=== PATIENT | female | born 1990 | race Caucasian/White ===

== ENCOUNTER 2023-12-18 17:35 | Emergency (ER) | payer OTHER, SELFPAY ==
[2023-12-18] VITALS (7 sets, daily range): BP systolic 108–127; BP diastolic 57–94; BMI 30.7
[2023-12-18 17:58] LABS: % Basophils 0.4 % (0-2); % Eosinophils 0.9 % (0-6); % Immature Granulocytes 0.5 % (0-0.5); % Monocytes 5.8 % (1.7-9.3); % Neutrophils 81.4 % (42.2-75.2); Absolute Basophils 0.1 10^3/uL (0-0.2); Absolute Eosinophils 0.1 10^3/uL (0-0.7); Absolute Immature Granulocytes 0.1 10^3/uL (0-0.05); Absolute Lymphocytes 1.3 10^3/uL (1.2-3.4); Absolute Monocytes 0.7 10^3/uL (0.1-0.6); Absolute Neutrophils 9.2 10^3/uL (1.4-6.5); Hematocrit 39.3 % (37.0-47.0); Hemoglobin 13.6 g/dL (12.0-16.0); Mean Corp Hgb Conc. 34.6 g/dL (33.0-37.0); Mean Corpuscular Hgb 31.1 pg (27.0-31.0); Mean Corpuscular Volume 89.7 fL (81.0-99.0); Nucleated Red Blood Cells % 0 %; Platelet Count 264 10^3/uL (130-400); Red Blood Cell Count 4.38 10^6/uL (4.20-5.40); Red Cell Dist. Width 15.2 % (11.5-14.5); White Blood Cell Count 11.4 10^3/uL (4.8-10.8)
[2023-12-18 19:36] LABS: Blood Urea Nitrogen 10 mg/dl (7-17); Calcium 9.7 mg/dl (8.4-10.2); Carbon Dioxide 19 mmol/L (22-30); Chloride 101 mmol/L (98-107); Estimated Creatinine Clearance > 125 ml/min; Glucose 98 mg/dl (70-99); Sodium 136 mmol/L (135-145); eGFR > 60.00
[2023-12-18 20:38] LABS: Urine Albumin Trace (Neg - Trace); Urine Bilirubin 1+ (Negative); Urine Character Very Cloudy (Clear); Urine Color Yellow; Urine Glucose Negative (Negative); Urine Ketone Trace (Negative); Urine Leukocyte Trace (Negative); Urine Nitrite Negative (Negative); Urine Occult Blood 1+ (Negative); Urine Urobilinogen Negative (Neg - 1+)
[2023-12-18 20:43] LABS: HCG, Urine Qualitative Screen Negative
[2023-12-18 20:50] LABS: Urine Red Blood Cell 0-2 /HPF (0-2); Urine Squamous Cell >30 /LPF (Few); Urine White Cell 0-2 /HPF (0-5)
[2023-12-18] MEDS: MOTRIN 600 MG PO (21:25)
[2023-12-18] MEDS: NSS 1000 IV (21:27)
--- NOTE | 2023-12-18 21:53 | ED.GENMED ---
History of Present Illness
General
Chief Complaint: Weakness
Source: patient
Time Seen by Provider: 12/18/23 20:40
History of Present Illness
History of Present Illness:
33-year-old female with past medical history of anxiety, depression, PTSD (seizure noted in past medical history however patient states that she had full neurologic workup she was told did not have any signs of epilepsy or seizure disorder)
presenting to the emergency stating she has been extremely anxious over the last 48 hours, has had waxing and waning nausea, had a questionable seizure this past Monday after a night of drinking but states she remembers the event and was fully
conscious during it and believes that this was just her anxiety. She had been drinking approximately 8 alcoholic beverages over the last 3 days due to her anxiety. Recently moved out of her grandmother's house into an apartment with her boyfriend
but states her boyfriend left for his job as a hole digger truck driver earlier today and patient believes all of her symptoms are just related to her anxiety over this. She noticed a frontal headache as well today so decided to come to the ER to be further
evaluated. She states that she has had some issues with alcohol in the past and has an appointment with her psychologist and psychiatrist tomorrow. She denies any SI/HI or auditory/visual hallucinations. No other concerns at this time.
Past History
Past History
ED Past Medical History: Psychiatric
ED Past Surgical History:
Social History
Tobacco: Smoker
Alcohol: Binge drinker
Drug: None
Personal: Partner
Living: with family
Employment: Employed
Review of Systems
Review of Systems
All Other Systems: ROS reviewed and negative except as documented in HPI and ROS
Phy Exam
Physical Exam
Physical Exam:
GENERAL: Alert , in no apparent distress, anxious and tearful
EYE: conjunctiva clear
NECK: Supple
ENT: o/p clr, mmm.
CARDIAC: Regular rate and rhythm
LUNGS: Clear breath sounds bilaterally, no acute respiratory distress, no wheezes/rales/rhonchi
NEUROLOGICAL: Alert and oriented
SKIN: Warm and dry, skin intact.
MUSCULOSKELETAL: well perfused.
PSYCH: Normal and appropriate interaction.
Scores
Heart Failure Risk
Heart Failure Risk Score: Not Applicable
Heart Score for Chest Pain Patients
STEMI patient?: Not applicable
Withdrawal Assessment of Alcohol
Withdrawal Assessment Completed?: Not applicable
Course
Orders/Labs/Results
Orders:
Orders
12/18/23 17:47
Basic Metabolic Panel Urgent
Complete Blood Count/With Diff Urgent
12/18/23 19:46
Test Result ONCE
12/18/23 20:26
HCG, Urine Qualitative Screen Urgent
Date Specimen was Collected: 12/18/23
Time Specimen was Collected: 19:46
UA Reflex to Culture [Urinalysis Reflex To Culture] Urgent
Date Specimen was Collected: 12/18/23
Time Specimen was Collected: 19:46
Urine Microscopic Reflex Cult Urgent
12/18/23 20:52
0.9% Sodium Chloride 1000 ml [Nss] 1,000 ml IV BOLUS
Ibuprofen [Motrin] 600 mg PO NOW STA
Abnormal Lab Results
12/18/23 12/18/23
17:47 20:26
WBC 11.4 H 10^3/uL
(4.8-10.8)
MCH 31.1 H pg
(27.0-31.0)
RDW 15.2 H %
(11.5-14.5)
Abs Immat Gran (auto) 0.1 H 10^3/uL
(0-0.05)
Absolute Neuts (auto) 9.2 H 10^3/uL
(1.4-6.5)
Absolute Monos (auto) 0.7 H 10^3/uL
(0.1-0.6)
Neutrophils % 81.4 H %
(42.2-75.2)
Lymphocytes % 11.0 L %
(20.5-51.1)
Carbon Dioxide 19 L mmol/L
(22-30)
Creatinine 0.5 L mg/dL
(0.6-1.0)
Urine Ketones Trace A
(Negative)
Ur Occult Blood Reflex 1+ A
(Negative)
Urine Bilirubin 1+ A
(Negative)
Leukocyte Esterase Rfl Trace A
(Negative)
12/18/23 17:47
12/18/23 18:11
Vital Signs
Initial and Last Documented VS:
Initial Vital Signs
Temp Pulse Resp BP
98.4 F 107 14 118/86
12/18/23 17:39 12/18/23 17:39 12/18/23 17:39 12/18/23 17:39
Last Documented Vital Signs
Temp Pulse Resp BP Pulse Ox
98.4 F 75 15 127/85 100
12/18/23 17:39 12/18/23 22:15 12/18/23 22:15 12/18/23 22:00 12/18/23 22:15
MDM/Problems Addressed
Differential Diagnosis Includes:
Anxiety, alcohol withdrawal seizure, pseudoseizure, electrolyte disturbance
MDM/Problems Addressed:
33-year-old female presenting emergency department for evaluation of a multitude of symptoms centered around patient's anxiety. Currently stating symptom bothering her most is a mild headache and feels dehydrated. She denies any fevers or
infectious symptoms. As far as patient's seizure goes she notes that she had been drinking that night so it is unlikely to be an alcohol withdrawal seizure given that the seizure in question occurred while drinking. Patient also notes that she was
conscious during this event as well as has been worked up for seizure in the past with no abnormal findings. I did offer [facility] consultation however patient declines and states she will follow-up with her own psychologist tomorrow. Will treat
headache with fluids and Motrin. Patient to be dispositioned home afterwards
Chronic conditions affecting care: Psychiatric illness
Acute Exacerbation and/or Progression of Chronic Illness: Psychiatric illness
*Pulse Oximetry
Patient hypoxic: no
*Critical Care Note
Total Time (30-74mins, 75-104mins- exclusive of procedures): Not Applicable
Patient Management
Escalation/DeEscalation of care consider admission/obs:
Patient feeling improved. Stable for discharge home. Aware of return precautions.
ED Attending Note
-
Portions of this chart may have been created with voice recognition software.� Occasional wrong word or��sound alike� substitutions may have occurred due to the inherent limitations of voice recognition software.
Discharge Plan
Departure
Patient Disposition: Home (Routine Discharge)
Date of Disposition: 12/18/23
Time of Disposition: 21:53
Patient with high blood pressure during this ER visit?: No
Discharge Problem:
Headache
Instructions: Anxiety, Adult ED
Referrals:
NONE,* [Family Provider] -
Interventions
Interventions:
*Risk Screen - Suicide Last Done: 12/18/23 17:39
*General Assessment Last Done: 12/18/23 17:39
*Neglect/Abuse Screening Last Done: 12/18/23 17:39
ED- Fall Risk Assessment Last Done: 12/18/23 22:31
*ED COVID-19 Vaccine History Last Done: 12/18/23 22:31
*Nursing Disposition Last Done: 12/18/23 22:31
ED- Cardiac Assessment Last Done: 12/18/23 17:46
ED- Neurological Assessment Last Done: 12/18/23 17:46
ED- Pulmonary Assessment Last Done: 12/18/23 17:46
Discharge Date and Time
Discharge Date/Time: 12/18/23 22:32
Print Language: TAMAZIGHT
== END 2023-12-18 22:32 | disposition home or self-care (01) ==
LOC: EMR 17:35
PROVIDERS: EMERGENCY PHYSICIAN Emergency Medicine
DX: R51.9 Headache, unspecified (principal); F41.9 Anxiety disorder, unspecified; F32.A Depression, unspecified; F17.200 Nicotine dependence, unspecified, uncomplicated
CPT/HCPCS: 99284; 96360; 80048; 81003; 81015; 81025; 85025

== ENCOUNTER 2023-12-24 08:25 | Emergency (ER) | payer OTHER, SELFPAY ==
[2023-12-24 08:30] VITALS: BP 135/98
--- NOTE | 2023-12-24 08:58 | ED.GENMED ---
History of Present Illness
General
Chief Complaint: Alcohol Problem
Source: patient
Exam Limitations: none
Time Seen by Provider: 12/24/23 08:36
Nursing documentation reviewed up to this point in time: agreed with
History of Present Illness
History of Present Illness:
33-year-old female presents to the ER for evaluation. Patient reports she feels that she is in alcohol withdrawal. She last drank 2 PM yesterday. She complains of shakes nausea and feels like she can pass out. She normally drinks every day and
recently has been drinking a bottle of vodka a day. She does report she has a history of seizure in the past and has had hallucinations in the past from alcohol withdrawal. She has never been inpatient for alcohol detox. She is prescribed
medications for anxiety depression has not been taking them. She denies any other drugs.
Since she stopped drinking yesterday at 2 PM she has not had any hallucinations.
Past History
Past History
ED Past Medical History: Psychiatric
ED Past Surgical History:
Social History
Tobacco: Smoker
Alcohol: Binge drinker
Drug: None
Personal: Partner
Living: with family
Employment: Employed
Review of Systems
Review of Systems
Allergies reviewed?: Yes
All Other Systems: ROS reviewed and negative except as documented in HPI and ROS
Constitutional: Reports no symptoms; Denies fever, fatigue or chills
EENT: Reports no symptoms
Respiratory: Reports no symptoms
Cardiac: Reports no symptoms
ABD/GI: Reports nausea; Denies vomiting
: Reports no symptoms
Musculoskeletal: Reports no symptoms
Skin: Reports no symptoms
Neurological: Reports other (shaky )
Psychiatric: Reports no symptoms
Phy Exam
General Physical Exam
General Presentation: no apparent distress
General age: appears stated age
General Skin: warm and dry
General Habitus: normal
General Mental: anxious
General Hydration: dry mucous membranes
Eye Exam
Eye Exam: PERRL and EOMI
Eye Exam General: PERRL: bilateral and EOM intact: bilateral
Pupil Exam: Bilateral: round and reactive
Cardiovascular Exam
Cardiovascular Exam: regular rate/rhythm, no murmur and normal peripheral pulses
Pulmonary Exam
Pulmonary Exam: lungs clear and no respiratory distress
Scores
Withdrawal Assessment of Alcohol
Withdrawal Assessment Completed?: Yes
Nausea and Vomiting: Mild nausea with no vomiting
Tactile Disturbances: None
Tremor: Moderate, with patient's arms extended
Auditory Disturbances: Not present
Paroxysmal Sweats: No sweat visible
Visual Disturbances: Not present
Anxiety: No anxiety, at ease
Headache, Fullness in Head: Not present
Agitation: Normal activity
Orientation and clouding of sensorium: Oriented and can do serial additions
Total CIWA Score: 5
Alcohol Withdrawal Medication Recommendation: Equal to MSAS Score 0-4. Monitor & re-assess q2hrs, NO MEDICATION NEEDED
Course
Orders/Labs/Results
Orders:
Orders
12/24/23 08:48
IV Insert/Care/Rem.- Treatment PRN
0.9% Sodium Chloride 1000 ml [Nss] 1,000 ml IV BOLUS
Test Result ONCE
12/24/23 09:00
Lorazepam [Ativan] 1 mg IV NOW STA
12/24/23 09:01
Ondansetron Injectable [Zofran] 4 mg IV NOW STA
12/24/23 09:05
Alcohol Urgent
Complete Blood Count/With Diff Urgent
Comprehensive Metabolic Panel Urgent
HCG, Serum Qualitative Screen Urgent
Lipase Urgent
12/24/23 13:05
Urinalysis Reflex To Culture Urgent
Date Specimen was Collected: 12/24/23
Time Specimen was Collected: 13:03
Urine Microscopic Reflex Cult Urgent
Urine Culture Urgent
JASPER Source: U
Specimen Description:
Date Specimen was Collected: 12/24/23
Time Specimen was Collected: 13:03
Abnormal Lab Results
12/24/23 12/24/23
09:05 13:05
WBC 11.3 H 10^3/uL
(4.8-10.8)
MCH 31.7 H pg
(27.0-31.0)
RDW 16.3 H %
(11.5-14.5)
Abs Immat Gran (auto) 0.1 H 10^3/uL
(0-0.05)
Absolute Neuts (auto) 9.1 H 10^3/uL
(1.4-6.5)
Absolute Lymphs (auto) 0.8 L 10^3/uL
(1.2-3.4)
Absolute Monos (auto) 1.2 H 10^3/uL
(0.1-0.6)
Neutrophils % 80.6 H %
(42.2-75.2)
Lymphocytes % 7.3 L %
(20.5-51.1)
Monocytes % 10.7 H %
(1.7-9.3)
Urine Ketones 2+ A
(Negative)
Ur Occult Blood Reflex Trace A
(Negative)
Leukocyte Esterase Rfl 2+ A
(Negative)
Urine RBC 3-6 A /HPF
(0-2)
Urine WBC (Reflex) 26-30 A /HPF
(0-5)
Urine Bacteria (Reflex) Many A
(Negative)
12/24/23 09:05
12/24/23 09:05
Vital Signs
Initial and Last Documented VS:
Initial Vital Signs
Temp Pulse Resp BP Pulse Ox
98.1 F 96 18 135/98 96
12/24/23 08:30 12/24/23 08:30 12/24/23 08:30 12/24/23 08:30 12/24/23 08:30
Last Documented Vital Signs
Temp Pulse Resp BP Pulse Ox
98.1 F 91 20 111/81 97
12/24/23 08:30 12/24/23 13:35 12/24/23 13:00 12/24/23 13:00 12/24/23 11:05
MDM/Problems Addressed
Differential Diagnosis Includes:
Not limited to alcohol withdrawal, dehydration
MDM/Problems Addressed:
Patient is a 33-year-old female with history of alcohol abuse complaining of alcohol withdrawal symptoms. She last drank yesterday at 2 PM complains of shakes and tremors. She does report she is a history of seizures. She denies any
hallucinations. She does present awake alert and tremulous however in no acute distress none diaphoretic none sweaty oriented x 3 . Patient was given fluids and Ativan feeling much better, less tremulous. She is afebrile white count minimally
elevated no complaints of infectious symptoms likely stress response. Normal LFTs normal renal function and negative hCG. Alcohol is not detected, UA with significant squamous cells no symptoms
she was evaluated by Dinorah thomson and declines inpatient but does want outpatient and is scheduled for outpatient center in [facility].
Case d/c with dr Lopez patient feels well enough to go home will DC on Librium fixed regimen. Boyfriend to come pick patient up. She is to return if any worsening of symptoms.
Chronic conditions affecting care:
alcohol abuse
*Pulse Oximetry
Patient hypoxic: no
*Critical Care Note
Total Time (30-74mins, 75-104mins- exclusive of procedures): Not Applicable
ED Attending Note
-
Portions of this chart may have been created with voice recognition software.� Occasional wrong word or��sound alike� substitutions may have occurred due to the inherent limitations of voice recognition software.
Discharge Plan
Departure
Patient Disposition: Home (Routine Discharge)
Date of Disposition: 12/24/23
Time of Disposition: 13:28
Patient with high blood pressure during this ER visit?: Yes
Condition: Fair
Covid-19: Not Applicable
Discharge Problem:
Alcohol dependence with withdrawal
Instructions: Alcohol Withdrawal (DC), BLOOD PRESSURE
Prescriptions:
New
chlordiazepoxide HCl 25 mg capsule
See Rx Instructions .ROUTE .COMPLEX Qty: 15 0RF
Rx Instructions:
Day1: 50 mg PO every 4- 6 hr Day 2 : 50 mg every 8-12 hr Day 3 50 mg every 12 - 24 hr Day 4: 25 mg every 12 to 24 hr then discontinue
Referrals:
NONE,* [Family Provider] -
Activity Restrictions/Additional Instructions:
As discussed a prescription for Librium for alcohol withdrawal was sent to your pharmacy take only as directed. You have been scheduled for outpatient detox program in [facility] and were given instructions. Return to the ER if any
worsening of symptoms if nausea vomiting tremors hallucinations sweating when the seizure activity or any further concerns.
Interventions
Interventions:
*Risk Screen - Suicide Last Done: 12/24/23 09:07
*General Assessment Last Done: 12/24/23 09:07
*Neglect/Abuse Screening Last Done: 12/24/23 09:07
ED- Fall Risk Assessment Last Done: 12/24/23 13:50
*ED COVID-19 Vaccine History Last Done: 12/24/23 09:07
*Nursing Disposition Last Done: 12/24/23 13:50
ED- Neurological Assessment Last Done: 12/24/23 09:07
ED-Psychological Assessment Last Done: 12/24/23 09:07
Discharge Date and Time
Discharge Date/Time: 12/24/23 13:45
Print Language: CAMBODIAN
[2023-12-24] MEDS: ZOFRAN 4 MG IV (09:03)
[2023-12-24] MEDS: ATIVAN 1 MG IV (09:03)
[2023-12-24] MEDS: NSS 1000 IV (09:03)
[2023-12-24 09:07] VITALS: BMI 30.7
[2023-12-24 09:18] LABS: % Basophils 0.8 % (0-2); % Eosinophils 0.2 % (0-6); % Immature Granulocytes 0.4 % (0-0.5); % Lymphocytes 7.3 % (20.5-51.1); % Monocytes 10.7 % (1.7-9.3); % Neutrophils 80.6 % (42.2-75.2); Absolute Basophils 0.1 10^3/uL (0-0.2); Absolute Immature Granulocytes 0.1 10^3/uL (0-0.05); Absolute Lymphocytes 0.8 10^3/uL (1.2-3.4); Absolute Monocytes 1.2 10^3/uL (0.1-0.6); Absolute Neutrophils 9.1 10^3/uL (1.4-6.5); Hematocrit 41.5 % (37.0-47.0); Hemoglobin 14.3 g/dL (12.0-16.0); Mean Corp Hgb Conc. 34.5 g/dL (33.0-37.0); Mean Corpuscular Hgb 31.7 pg (27.0-31.0); Mean Platelet Volume 9.1 fL (7.4-10.4); Nucleated Red Blood Cells % 0 %; Platelet Count 301 10^3/uL (130-400); Red Blood Cell Count 4.51 10^6/uL (4.20-5.40); Red Cell Dist. Width 16.3 % (11.5-14.5); White Blood Cell Count 11.3 10^3/uL (4.8-10.8)
[2023-12-24 09:28] LABS: ALT (SGPT) 21 U/L (0-35); AST (SGOT) 27 U/L (14-36); Albumin 4.9 g/dl (3.5-5.0); Alkaline Phosphatase 95 U/L (38-126); Blood Urea Nitrogen 12 mg/dl (7-17); Calcium 9.2 mg/dl (8.4-10.2); Carbon Dioxide 28 mmol/L (22-30); Chloride 103 mmol/L (98-107); Estimated Creatinine Clearance > 125 ml/min; Glucose 97 mg/dl (70-99); Lipase 100 U/L (23-300); Sodium 141 mmol/L (135-145); Total Bilirubin 0.5 mg/dl (0.2-1.3); Total Protein 7.6 g/dl (6.3-8.2); eGFR > 60.00
[2023-12-24 09:36] LABS: HCG, Serum Qualitative Screen Negative
[2023-12-24 09:40] LABS: Alcohol None Detected
[2023-12-24 10:05] VITALS: BP 127/77
[2023-12-24 11:05] VITALS: BP 121/94
[2023-12-24 12:00] VITALS: BP 113/77
[2023-12-24 13:00] VITALS: BP 111/81
[2023-12-24 13:21] LABS: Urine Albumin Trace (Neg - Trace); Urine Bilirubin Negative (Negative); Urine Character Very Cloudy (Clear); Urine Color Yellow; Urine Glucose Negative (Negative); Urine Ketone 2+ (Negative); Urine Leukocyte 2+ (Negative); Urine Nitrite Negative (Negative); Urine Occult Blood Trace (Negative); Urine Urobilinogen Negative (Neg - 1+)
[2023-12-24 13:44] LABS: Urine Bacteria Many (Negative); Urine Mucus Moderate; Urine Squamous Cell 16-20 /LPF (Few); Urine White Cell 26-30 /HPF (0-5)
== END 2023-12-24 13:45 | disposition home or self-care (01) ==
LOC: EMR 08:25
PROVIDERS: Nurse Practitioner; EMERGENCY PHYSICIAN Emergency Medicine
DX: F10.239 Alcohol dependence with withdrawal, unspecified (principal); R11.0 Nausea; R03.0 Elevated blood-pressure reading, without diagnosis of hypertension; F32.A Depression, unspecified; F41.9 Anxiety disorder, unspecified; Z91.148 Patient's other noncompliance with medication regimen for other reason; R56.9 Unspecified convulsions; F17.200 Nicotine dependence, unspecified, uncomplicated; F43.10 Post-traumatic stress disorder, unspecified
CPT/HCPCS: 99284; 96374; 96375; 96361; 80053; 81003; 81015; 82077; 83690; 84703; 85025; 87077; 87086; 87147

== ENCOUNTER 2024-04-05 08:35 | Emergency (ER) | payer OTHER, SELFPAY ==
[2024-04-05] VITALS (8 sets, daily range): BP systolic 99–132; BP diastolic 54–89; BMI 27.5
--- NOTE | 2024-04-05 08:45 | ED.GENMED ---
History of Present Illness
General
Chief Complaint: Withdrawal Symptoms
Source: patient
Exam Limitations: none
Time Seen by Provider: 04/05/24 08:41
Nursing documentation reviewed up to this point in time: agreed with
History of Present Illness
History of Present Illness:
34-year-old female with past medical history of alcohol abuse seizure disorder anxiety depression presenting to the emergency department today with concerns of potential alcohol withdrawal. She claims that she has not been drinking much over the
past few weeks but drank a bottle of hard liquor yesterday mainly stopped drinking roughly 12 hours ago but had 1 shot this morning to help with what she feels is withdrawal symptoms this morning. She feels very anxious and agitated. Denies any
chest pain shortness of breath feels very thirsty has been vomiting this morning as well.
Past History
Past History
ED Past Medical History: Psychiatric
ED Past Surgical History:
Social History
Tobacco: Smoker
Alcohol: Binge drinker
Drug: None
Personal: Partner
Living: with family
Employment: Employed
Review of Systems
Review of Systems
Allergies reviewed?: Yes
All Other Systems: ROS reviewed and negative except as documented in HPI and ROS
Phy Exam
Physical Exam
Physical Exam:
GENERAL: Alert , anxious and agitated
EYE: pupils equal and reactive
NECK: Supple, no significant adenopathy.
ENT: o/p clr, mmm.
CARDIAC: Regular rate and rhythm .
LUNGS: Clear breath sounds bilaterally, no acute respiratory distress, no wheezes/rales/rhonchi
ABDOMEN: Soft, without focal tenderness, no r/g, no cvat
NEUROLOGICAL: Alert and oriented, no focal neuro deficits
SKIN: Warm and dry, skin intact.
MUSCULOSKELETAL: No edema, well perfused.
PSYCH: Very anxious
Scores
Withdrawal Assessment of Alcohol
Withdrawal Assessment Completed?: Yes
Nausea and Vomiting: Constant nausea, frequent dry heaves and vomiting
Tactile Disturbances: Very mild itching, pins and needles, burning or numbness
Tremor: Moderate, with patient's arms extended
Auditory Disturbances: Very mild harshness or ability to fighten
Paroxysmal Sweats: Beads of sweat obvious on forehead
Visual Disturbances: Mild sensitivity
Anxiety: Equivalent to acute panic states-severe delirium/acute schizophrenic
Headache, Fullness in Head: Mild
Agitation: Moderately fidgety and restless
Orientation and clouding of sensorium: Oriented and can do serial additions
Total CIWA Score: 32
Alcohol Withdrawal Medication Recommendation: Equal to MSAS >11. Lorazepam 2-4mg IV NOW and re-assess q1hr
Course
Orders/Labs/Results
Orders:
Orders
04/05/24 08:43
Lorazepam [Ativan] 1 mg IV NOW STA
Ondansetron Injectable [Zofran] 4 mg IV NOW STA
04/05/24 08:44
Urinalysis Reflex To Culture Urgent
0.9% Sodium Chloride 1000 ml [Nss] 1,000 ml IV BOLUS
Test Result ONCE
04/05/24 09:08
Beta Hcg Serum Qualitative Screen [HCG, Serum Qualitative Screen] Urgent
CBC/With Diff [Complete Blood Count/With Diff] Urgent
CMP [Comprehensive Metabolic Panel] Urgent
04/05/24 09:37
Lorazepam [Ativan] 2 mg IV NOW STA
04/05/24 10:59
Diphenhydramine [Benadryl] 25 mg IV NOW STA
Ketorolac [Toradol] 30 mg IV NOW STA
Metoclopramide [Reglan] 10 mg IV NOW STA
Abnormal Lab Results
04/05/24
09:08
WBC 12.6 H 10^3/uL
(4.8-10.8)
MCH 31.1 H pg
(27.0-31.0)
Plt Count 438 H 10^3/uL
(130-400)
Absolute Neuts (auto) 10.4 H 10^3/uL
(1.4-6.5)
Absolute Monos (auto) 0.8 H 10^3/uL
(0.1-0.6)
Neutrophils % 82.5 H %
(42.2-75.2)
Lymphocytes % 9.6 L %
(20.5-51.1)
Carbon Dioxide 16 L mmol/L
(22-30)
Albumin 5.1 H g/dl
(3.5-5.0)
04/05/24 09:08
04/05/24 09:08
Vital Signs
Initial and Last Documented VS:
Initial Vital Signs
Temp Pulse Resp BP Pulse Ox
98.2 F 106 16 132/89 98
04/05/24 08:38 04/05/24 08:38 04/05/24 08:38 04/05/24 08:38 04/05/24 08:38
Last Documented Vital Signs
Temp Pulse Resp BP Pulse Ox
98.2 F 100 21 104/54 91
04/05/24 08:38 04/05/24 12:30 04/05/24 12:30 04/05/24 12:01 04/05/24 12:00
MDM/Problems Addressed
MDM/Problems Addressed:
34-year-old female presenting to the emergency department with concerns of symptoms after consuming alcohol yesterday. She claims she has not been drinking daily over the past 3 weeks. She drank 1 bottle of liquor yesterday had 1 shot this morning
to help with symptoms. Has been having ongoing vomiting starting this morning. Patient does have a history of significant withdrawals and seizures from withdrawal however patient has not been drinking consistently. Symptoms may be from hangover
effect drinking yesterday as well as a panic attack. Patient will be given Ativan and reassess. Some improvement with first dose of Ativan given a second dose with significant improvement. Additionally given Reglan and Toradol for headache and
nausea. Heart rate improving to the 90s for large portion of ERs visit. Slight white count of 12.6 but otherwise labs unremarkable. Patient no distress and sleeping on reassessment. Patient claims that she did not drink for multiple weeks and
drank an entire bottle yesterday significant withdrawal unlikely more likely to be consistent with hangover from previous use yesterday. Plan for outpatient treatment. Patient was also seen by Dinorah thomson prior to discharge. Return precautions were
given.
*Critical Care Note
Total Time (30-74mins, 75-104mins- exclusive of procedures): Not Applicable
ED Attending Note
-
Portions of this chart may have been created with voice recognition software.� Occasional wrong word or��sound alike� substitutions may have occurred due to the inherent limitations of voice recognition software.
Discharge Plan
Departure
Patient Disposition: Home (Routine Discharge)
Date of Disposition: 04/05/24
Time of Disposition: 13:01
Patient with high blood pressure during this ER visit?: No
Condition: Good
Covid-19: Not Applicable
Discharge Problem:
Alcohol use disorder
Instructions: Alcohol Use Disorder (DC)
Prescriptions:
New
lorazepam [Ativan] 1 mg tablet
1 mg PO DAILY PRN (Reason: anxiety) Qty: 3 0RF
No Action
chlordiazepoxide HCl 25 mg capsule
See Rx Instructions .ROUTE .COMPLEX Qty: 15 0RF
Rx Instructions:
Day1: 50 mg PO every 4- 6 hr Day 2 : 50 mg every 8-12 hr Day 3 50 mg every 12 - 24 hr Day 4: 25 mg every 12 to 24 hr then discontinue
Activity Restrictions/Additional Instructions:
You came to the emergency department today with concerns of symptoms after drinking alcohol yesterday. Here had a reassuring assessment. Please follow closely as an outpatient and take the Ativan as needed. Return immediately for any worsening,
new or concerning symptoms.
Interventions
Interventions:
*Risk Screen - Suicide Last Done: 04/05/24 08:38
*General Assessment Last Done: 04/05/24 08:51
*Neglect/Abuse Screening Last Done: 04/05/24 08:38
ED- Fall Risk Assessment Last Done: 04/05/24 08:51
*ED COVID-19 Vaccine History Last Done: 04/05/24 08:51
ED- Neurological Assessment Last Done: 04/05/24 08:51
ED-Psychological Assessment Last Done: 04/05/24 08:51
Discharge Date and Time
Print Language: YAKUT
[2024-04-05] MEDS: ZOFRAN 4 MG IV (09:09)
[2024-04-05] MEDS: ATIVAN 1 MG IV (09:09)
[2024-04-05] MEDS: NSS 1000 IV (09:09)
[2024-04-05 09:32] LABS: % Basophils 1.3 % (0-2); % Immature Granulocytes 0.3 % (0-0.5); % Lymphocytes 9.6 % (20.5-51.1); % Monocytes 6.3 % (1.7-9.3); % Neutrophils 82.5 % (42.2-75.2); Absolute Basophils 0.2 10^3/uL (0-0.2); Absolute Lymphocytes 1.2 10^3/uL (1.2-3.4); Absolute Monocytes 0.8 10^3/uL (0.1-0.6); Absolute Neutrophils 10.4 10^3/uL (1.4-6.5); Hematocrit 42.4 % (37.0-47.0); Hemoglobin 14.7 g/dL (12.0-16.0); Mean Corp Hgb Conc. 34.7 g/dL (33.0-37.0); Mean Corpuscular Hgb 31.1 pg (27.0-31.0); Mean Corpuscular Volume 89.6 fL (81.0-99.0); Mean Platelet Volume 9.9 fL (7.4-10.4); Nucleated Red Blood Cells % 0 %; Platelet Count 438 10^3/uL (130-400); Red Blood Cell Count 4.73 10^6/uL (4.20-5.40); Red Cell Dist. Width 13.1 % (11.5-14.5); White Blood Cell Count 12.6 10^3/uL (4.8-10.8)
[2024-04-05 09:44] LABS: HCG, Serum Qualitative Screen Negative
[2024-04-05 09:50] LABS: ALT (SGPT) 20 U/L (0-35); AST (SGOT) 35 U/L (14-36); Albumin 5.1 g/dl (3.5-5.0); Alkaline Phosphatase 92 U/L (38-126); Blood Urea Nitrogen 16 mg/dl (7-17); Calcium 9.9 mg/dl (8.4-10.2); Carbon Dioxide 16 mmol/L (22-30); Chloride 101 mmol/L (98-107); Estimated Creatinine Clearance 97 ml/min; Glucose 70 mg/dl (70-99); Potassium 4.5 mmol/L (3.5-5.1); Sodium 145 mmol/L (135-145); Total Bilirubin 0.5 mg/dl (0.2-1.3); Total Protein 7.8 g/dl (6.3-8.2); eGFR > 60.00
[2024-04-05] MEDS: ATIVAN 2 MG IV (10:04)
[2024-04-05] MEDS: TORADOL 30 MG IV (11:16)
[2024-04-05] MEDS: BENADRYL 25 MG IV (11:18)
[2024-04-05] MEDS: REGLAN 10 MG IV (11:19)
== END 2024-04-05 15:15 | disposition home or self-care (01) ==
LOC: EMR 08:35
PROVIDERS: Physician Assistant; EMERGENCY PHYSICIAN Emergency Medicine
DX: F10.10 Alcohol abuse, uncomplicated (principal); R45.1 Restlessness and agitation; R11.2 Nausea with vomiting, unspecified; R51.9 Headache, unspecified; F41.0 Panic disorder [episodic paroxysmal anxiety]; R56.9 Unspecified convulsions; F41.9 Anxiety disorder, unspecified; F32.A Depression, unspecified; F17.200 Nicotine dependence, unspecified, uncomplicated
CPT/HCPCS: 99284; 96374; 96375 ×4; 96361; 96376; 80053; 84703; 85025

== ENCOUNTER 2024-04-11 16:53 | Inpatient (IN) | payer OTHER, SELFPAY ==
[2024-04-09] VITALS (12 sets, daily range): BP systolic 88–158; BP diastolic 50–125; BMI 28.8; BMI 27.4
[2024-04-09 00:37] LABS: % Basophils 0.5 % (0-2); % Eosinophils 0.4 % (0-6); % Immature Granulocytes 1.7 % (0-0.5); % Lymphocytes 9.8 % (20.5-51.1); % Monocytes 6.2 % (1.7-9.3); % Neutrophils 81.4 % (42.2-75.2); Absolute Basophils 0.1 10^3/uL (0-0.2); Absolute Eosinophils 0.1 10^3/uL (0-0.7); Absolute Immature Granulocytes 0.2 10^3/uL (0-0.05); Absolute Lymphocytes 1.4 10^3/uL (1.2-3.4); Absolute Monocytes 0.9 10^3/uL (0.1-0.6); Absolute Neutrophils 11.3 10^3/uL (1.4-6.5); Hematocrit 37.7 % (37.0-47.0); Hemoglobin 12.8 g/dL (12.0-16.0); Mean Corpuscular Hgb 30.5 pg (27.0-31.0); Mean Corpuscular Volume 89.8 fL (81.0-99.0); Mean Platelet Volume 10.5 fL (7.4-10.4); Nucleated Red Blood Cells % 0 %; Platelet Count 279 10^3/uL (130-400); Red Cell Dist. Width 12.6 % (11.5-14.5); White Blood Cell Count 13.8 10^3/uL (4.8-10.8)
[2024-04-09 00:49] LABS: ALT (SGPT) 151 U/L (0-35); AST (SGOT) 197 U/L (14-36); Acetaminophen < 10 ug/ml (10-30); Albumin 3.9 g/dl (3.5-5.0); Alkaline Phosphatase 74 U/L (38-126); Blood Urea Nitrogen 3 mg/dl (7-17); Calcium 9.4 mg/dl (8.4-10.2); Carbon Dioxide 26 mmol/L (22-30); Chloride 99 mmol/L (98-107); Estimated Creatinine Clearance > 125 ml/min; Glucose 137 mg/dl (70-99); Potassium 3.5 mmol/L (3.5-5.1); Salicylate < 1.0 mg/dl (2.0-20.0); Sodium 126 mmol/L (135-145); Total Bilirubin 0.6 mg/dl (0.2-1.3); Total Protein 6.6 g/dl (6.3-8.2); eGFR > 60.00
[2024-04-09 00:55] LABS: Alcohol None Detected
[2024-04-09 01:02] LABS: Amphetamines Negative (Negative); Barbiturates Negative (Negative); Benzodiazepines Positive (Negative); Buprenorphine Negative (Negative); Cocaine Negative (Negative); Marijuana Positive (Negative); Methadone Negative (Negative); Methamphetamines Negative (Negative); Opiates Negative (Negative); Phencyclidine Negative (Negative); Tricyclic Antidepressants Negative (Negative)
--- NOTE | 2024-04-09 01:08 | EDRN ---
Patient seen trying to leave. When asked why she was leaving she said, 'he is talking about me' (pointing to a male nurse). Patient was able to be guided back to her room. Patient was able to tell this RN that her mother has schizophrenia. She
acknowledged that she is having auditory hallucinations. She believes that her neighbors are watching her and that there are cameras in her house. She said that her triggers are when people are screaming at her or when people are drinking around her.
[2024-04-09 01:13] LABS: Fentanyl, Urine Negative (Negative)
--- NOTE | 2024-04-09 02:14 | ED.GENMED ---
History of Present Illness
General
Chief Complaint: Anxiety
Source: patient
Exam Limitations: none
Time Seen by Provider: 04/09/24 01:51
History of Present Illness
History of Present Illness:
This is a 34 year old female that comes in with c/o anxiety. Patient states that she has been very anxious. States that she is ordered Clonidine 0.1 which she can take 3 times in a day. States that today she took3 tablets in the morning at 9am and
then 2 at 9:30pm. States that she has felt hot and shaky. States that she is also having hallucination. States that there are cameras in her house and that her neighbors are watching her. States that she is nauseated, has a headache and dizziness.
Denies any fever, chills, chest pain,SOB, abd pain, vomitiing, diarrhea, urinary burning.
Past History
Past History
ED Past Medical History: Seizures and Psychiatric (Anxiety, Depression, PTSD)
ED Past Surgical History: and Other (Eye surgery)
Social History
Tobacco: Smoker
Alcohol: Occasional
Drug: None
Personal: Single
Living: with family
Employment: Employed
Review of Systems
Review of Systems
All Other Systems: ROS reviewed and negative except as documented in HPI and ROS
Constitutional: Reports no symptoms; Denies fever or chills
EENT: Reports no symptoms
Respiratory: Reports no symptoms; Denies cough or trouble breathing
Cardiac: Denies chest pain
ABD/GI: Reports nausea; Denies abdominal pain, vomiting or diarrhea
: Reports no symptoms; Denies dysuria, frequency or urgency
Musculoskeletal: Reports no symptoms
Skin: Reports no symptoms
Neurological: Reports dizzy and headache
Psychiatric: Reports hallucinations and other (Paranoid behavior)
Phy Exam
General Physical Exam
General Presentation: no apparent distress
General age: appears stated age
General Skin: warm and dry
General Habitus: normal
General Mental: alert
General Hydration: dry mucous membranes
ENT Exam
ENT Exam: TM's normal, pharynx normal and neck supple
Eye Exam
Eye Exam: EOMI
Cardiovascular Exam
Cardiovascular Exam: regular rate/rhythm, no edema, no murmur and normal peripheral pulses
Pulmonary Exam
Pulmonary Exam: lungs clear, no respiratory distress, no rales, chest non tender, no crackles, no rhonchi, no wheezing and no cough
Gastrointestinal Exam
Gastrointestinal Exam: normal bowel sounds, non tender, soft, no organomegaly, no pulsatile mass and non distended
Musculoskeletal Exam
Musculoskeletal Exam: full ROM and no edema
Skin Exam
Skin Exam: normal color, warm/dry, no rash and no petechia
Psychiatric Exam
Psychiatric Exam: hallucination and paranoia
Course
Orders/Labs/Results
Orders:
Orders
04/09/24 00:19
Electrocardiogram (*1) Urgent
Reason for Study: Other
Other Reason for Exam: Potential overdose
EKG- Treatment ONCE
IV Insert/Care/Rem.- Treatment PRN
04/09/24 00:22
Acetaminophen Urgent
Alcohol Urgent
Complete Blood Count/With Diff Urgent
Comprehensive Metabolic Panel Urgent
Fentanyl, Urine Urgent
Lipase Urgent
Comment: ADDED
Salicylate Urgent
Urine Drug Abuse Screen Urgent
Date Specimen was Collected: 04/09/24
Time Specimen was Collected: 00:19
04/09/24 01:05
Crisis Consult Urgent
Reason for Consult: auditory hallucinations
04/09/24 02:13
0.9% Sodium Chloride 500 ml [Nss] 500 ml IV BOLUS
US Abdomen Complete/Upper Urgent
Comment:
Reason For Exam: eLEVATED LIVER ENZYMES.
04/09/24 02:18
Add On- LAB Urgent
Tests Added?: Lipase,
04/09/24 02:59
Consult Notification Routine
Specialty to Notify: Psychiatry
Consult Psychiatry [PSYCHIATRY CONSULT] Urgent
Consulting Provider: Eliezer Calderon
Was physician already notified: No
Reason for consult: Hallucination, Parnoid
04/09/24 03:00
Add On- LAB Stat
Tests Added?: tsh reflex to free t4
Urine Osmolality Random [Osmolality, Random Urine] Stat
Urine Sodium Stat
Abnormal Lab Results
04/09/24
00:22
WBC 13.8 H 10^3/uL
(4.8-10.8)
MPV 10.5 H fL
(7.4-10.4)
Abs Immat Gran (auto) 0.2 H 10^3/uL
(0-0.05)
Absolute Neuts (auto) 11.3 H 10^3/uL
(1.4-6.5)
Absolute Monos (auto) 0.9 H 10^3/uL
(0.1-0.6)
Immature Gran % 1.7 H %
(0-0.5)
Neutrophils % 81.4 H %
(42.2-75.2)
Lymphocytes % 9.8 L %
(20.5-51.1)
Sodium 126 L mmol/L
(135-145)
BUN 3 L mg/dl
(7-17)
Glucose 137 H mg/dl
(70-99)
AST 197 H U/L
(14-36)
ALT 151 H U/L
(0-35)
Salicylates < 1.0 L mg/dl
(2.0-20.0)
Acetaminophen < 10 L ug/ml
(10-30)
U Benzodiazepines Scrn Positive H
(Negative)
U Marijuana (THC) Screen Positive H
(Negative)
04/09/24 00:22
04/09/24 00:22
Leukocytosis Hyponatremia, Hyperglycemia. AST/ALT elevation. Negative for Salicylates and Acetaminophen. Urine positive for Benzo and Marijuana. Alcohol negative. Fentanyl negative.
Vital Signs
Initial and Last Documented VS:
Initial Vital Signs
Pulse Resp Pulse Ox
135 21 98
04/08/24 23:58 04/08/24 23:58 04/08/24 23:58
Last Documented Vital Signs
Temp Pulse Resp BP Pulse Ox
98.5 F 86 35 117/74 95
04/09/24 00:07 04/09/24 03:03 04/09/24 03:03 04/09/24 03:03 04/09/24 02:30
MDM/Problems Addressed
Differential Diagnosis Includes:
Psychiatric illness, Abusing medication,
MDM/Problems Addressed:
This is a 34 year old female that comes in with c/o taking extra Clonidine today. States that she is also hallucinating. Told that she also thinks her neighbors have cameras in her house and they are watching here.
Will get labs, urine drug and alcohol.
Explained to patient that she will be admitted as her sodium is very low. patient has a history of Seizure in the past. Patient will also need to see the Psychiatrist when here for her hallucination. Will also get US due to elevated liver enzymes.
Chronic conditions affecting care: Psychiatric illness
Acute Exacerbation and/or Progression of Chronic Illness: Psychiatric illness
*Pulse Oximetry
Patient hypoxic: no
*EKG
Interpreted by ED Provider?: Yes
Heart Rate: 109
Rate: tachycardiac
Rhythm: sinus
[place]: normal axis
Interval: normal interval
QRS Pattern: normal QRS
Ischemia: no ischemia
*Phone Banker Interpretation
Rate: Phone Banker- N/A
*Critical Care Note
Total Time (30-74mins, 75-104mins- exclusive of procedures): Not Applicable
ED Attending Note
-
Portions of this chart may have been created with voice recognition software.� Occasional wrong word or��sound alike� substitutions may have occurred due to the inherent limitations of voice recognition software.
Discharge Plan
Departure
Patient Disposition: Admit
Date of Disposition: 04/09/24
Time of Disposition: 03:00
Admit to: Telemetry
Presentation/result/management discussed w/ accepting MD/DO: Hospitalist
Patient with high blood pressure during this ER visit?: Yes
Condition: Good
Covid-19: Not Applicable
Discharge Problem:
Acute hyponatremia, Auditory hallucinations, Paranoid behavior, Elevated liver enzymes
Prescriptions:
No Action
chlordiazepoxide HCl 25 mg capsule
See Rx Instructions .ROUTE .COMPLEX Qty: 15 0RF
Rx Instructions:
Day1: 50 mg PO every 4- 6 hr Day 2 : 50 mg every 8-12 hr Day 3 50 mg every 12 - 24 hr Day 4: 25 mg every 12 to 24 hr then discontinue
lorazepam [Ativan] 1 mg tablet
1 mg PO DAILY PRN (Reason: anxiety) Qty: 3 0RF
Referrals:
NONE,* [Family Provider] -
Interventions
Interventions:
*Risk Screen - Suicide Last Done: 04/09/24 00:07
*General Assessment Last Done: 04/09/24 00:07
*Neglect/Abuse Screening Last Done: 04/09/24 00:07
ED- Fall Risk Assessment Last Done: 04/09/24 02:26
*ED COVID-19 Vaccine History Last Done: 04/09/24 02:26
ED-Psychological Assessment Last Done: 04/09/24 02:25
Discharge Date and Time
Print Language: ICELANDIC
[2024-04-09] MEDS: NSS 500 IV (02:23)
--- NOTE | 2024-04-09 03:15 | HPS.HSE ---
Family Physician
-
Family Physician: * NONE
Chief Complaint
-
Panic episode
History of Present Illness
Patient is a 34-year-old female with history of anxiety and alcohol use who presents to the emergency department with severe anxiety, hallucinations and paranoid delusions.
Patient was recently seen in the emergency department about 4 days ago following alcohol binging. She was discharged back to home. Patient tells me that over the last few weeks and months she has been having neighbors spying on her. They placed
cameras in the home. They are watching her she interacts with her child. While in the emergency department she also reported that she is seeing a nurse coming to the room to greet her. She denies any suicidal hallucinations. There were no
homicidal hallucinations. She denies herself any suicidal ideation or homicidal ideation.
Patient also believes she is depressed and anxious. She does not follow with a psychiatrist. She says that she takes clonidine? At home. And she tells me that he takes that intermittently and she took about 3 today. There is no record of
clonidine. She reports that her last drink was over 48 hours ago and she only had a small shot at that time. She reports ongoing marijuana and vaping intermittently. She denies any other drug use. Patient denies any urinary symptoms including
dysuria frequency hematuria or incontinence. She denies any rash. She reported that she had a neck headache after arriving in the emergency department.
In the ED the patient was afebrile she had a blood pressure of 117/74 with a pulse of 68. Labs were notable for a new rising AST and ALT. Chemistries are notable for a sodium of 126. CBC is unremarkable. Urine toxicology is positive for
marijuana.
Medical History
Past Medical History
Past Medical History: Reports Psychiatric (Anxiety. ETOH binging)
Past Surgical History: Reports Other (childhood abdominal surgery not otherwise specified)
Social History
Tobacco: Smoker (about 1 ppd)
Alcohol: Binge drinker
Drug: Marijuana
Personal:
Living: Alone
Employment: Other
Family History
Family History: Cancer and Other (Mother with mental health )
Allergies / Home Medications
Allergies reflects when Allergies were last updated in [facility].
Home Medications with original date entered in [facility]
Allergy/Medication List:
Allergies
Allergy/AdvReac Type Severity Reaction Status Date / Time
No Known Allergies Allergy Unverified 12/24/23 08:31
Home Medications
chlordiazepoxide HCl 25 mg capsule See Rx Instructions .Route .COMPLEX #15 caps 12/24/23
lorazepam 1 mg tablet (Ativan) 1 mg PO DAILY PRN anxiety #3 tabs 04/05/24
Review of Systems
-
Constitutional: Reports No Symptoms
EENT: Reports No Symptoms
Respiratory: Reports No Symptoms
Cardiac: Reports No Symptoms
Abdomen/GI: Reports No Symptoms
: Reports No Symptoms
Musculoskeletal: Reports No Symptoms
Skin: Reports No Symptoms
Neurological: Reports No Symptoms
Endocrine: Reports No Symptoms
Hematologic/Lymphatic: Reports No Symptoms
Psych: Reports Anxiety and Audio or Visual Hallucinations
Physical Exam
Vital Signs
Vital Signs
Temp Pulse Resp BP Pulse Ox
98.5 F 86 35 117/74 95
04/09/24 00:07 04/09/24 03:03 04/09/24 03:03 04/09/24 03:03 04/09/24 02:30
Physical Exam
General: Well Nourished and No Apparent Distress
HEENT: NormoCephalic, Anicteric, Moist mucous membranes and Atraumatic
Respiratory: Clear
Cardiac: S1/S2, Regular Rhythm and Bradycardia
Breast: Deferred by me
GI: Soft, Non Tender, Non Distended and Normal Bowel Sounds
Rectal: Deferred by Provider
Genito-urinary: Deferred by me
Musculoskeletal: No Clubbing, No Cyanosis and No Edema
Skin: Warm
Neuro: AO x 3
Hematologic/Lymphatic: No Lymphadenopathy
Psych: Anxious, Depressed and Other (Hallucinations, paranoid delusions)
Laboratory Results
-
04/09/24 00:22
04/09/24 00:22
Laboratory Results
Total Bilirubin 0.6 mg/dl (0.2-1.3) 04/09/24 00:22
AST 197 U/L (14-36) H 04/09/24 00:22
ALT 151 U/L (0-35) H 04/09/24 00:22
Alkaline Phosphatase 74 U/L (38-126) 04/09/24 00:22
Data Reviewed
-
Lab Data: Labs Reviewed by me
Impression/Plan
-
IMPRESSION:
This a 34-year-old female who has past medical history of anxiety and alcohol use who presents to the emergency department with concern for panic episode. Patient is endorsing paranoid delusions, prosecutorial paranoia. She also endorses
depression and possibly bipolar. She reports visual auditory hallucinations. She denies any command hallucinations. She denies suicidal or homicidal ideation. She is not disheveled, she has no difficulty with word, thinking is nontangential and
she does not have a flat affect. Found to have sodium of 126 and elevated AST/LT in ED.
PLAN:
1. Hyponatremia - Unclear etiology but likely SIADH. She reports taking clonidine but no other medications. Last drink was 48 hours ago. Reports good appetite, denies dizziness or lightheadedness. No SOB. Sodium was normal 4 days ago. I cannot
rule out ingestion entiely as she endosred clonidine up to 3 / 4times today for anxiety. She is euvolemic on exam.
- admit to med/surg
- given 500 ml ns in E D
- check urine osm, na, uric acid
-orthostatic vital signs
- check tsh
- repeat am sodium, serum osm
- will free water restrict for now to 1200 ml
- tox is negative except for marijuana
2. Transaminitis - New transaminatis with AST < 2x ALT. No abdominal pain. Normal bilis and lipase. Suspect etoh induced. Tylenol, salicylate and etoh level is negative
- check acute hep panel
- RUQ u/s
- check lipid panel
- trend for now
3. Psych - anxiety, delusions and hallucinations. ?BIPOLAR versus acute psychotic episode. Unlikely withdrawal as intermittent binge drinking and no history of etoh withdrawal
- psych consult
- ciwa protocol
- check folate levels
- Thiamine
DVT PPX - lovenox sq
Code Status - Full
[2024-04-09 03:18] LABS: Lipase 74 U/L (23-300)
[2024-04-09 04:43] LABS: TSH Reflex To Free T4 2.38 uIU/ml (0.47-4.68)
[2024-04-09] MEDS: ATIVAN 2 MG IV (05:07)
[2024-04-09] MEDS: NSS (PRESERVATIVE FREE) 1 ML IV (05:07)
[2024-04-09 06:19] LABS: Hematocrit 40.2 % (37.0-47.0); Hemoglobin 13.9 g/dL (12.0-16.0); Mean Corp Hgb Conc. 34.6 g/dL (33.0-37.0); Mean Corpuscular Hgb 30.5 pg (27.0-31.0); Mean Corpuscular Volume 88.2 fL (81.0-99.0); Mean Platelet Volume 10.6 fL (7.4-10.4); Platelet Count 332 10^3/uL (130-400); Red Blood Cell Count 4.56 10^6/uL (4.20-5.40); Red Cell Dist. Width 12.7 % (11.5-14.5); White Blood Cell Count 20.9 10^3/uL (4.8-10.8)
[2024-04-09 07:05] LABS: Osmolality Serum 288 mOsm/kg (275-300)
[2024-04-09 07:14] LABS: HDL Cholesterol 76 mg/dl; Hepatitis B Surface Antigen Negative (Negative); LDL Cholesterol, Calculated 80 mg/dl; Total Cholesterol 179 mg/dl (50-199); Triglyceride 119 mg/dl (10-149); Uric Acid 4.6 mg/dl (2.5-6.2); Very Low Density Lipoprotein 23 mg/dl (0-30)
[2024-04-09 07:15] LABS: TSH Reflex To Free T4 2.01 uIU/ml (0.47-4.68)
[2024-04-09 07:17] LABS: Hepatitis A IgM Antibody Negative (Negative)
[2024-04-09 07:32] LABS: Hepatitis B Surface Antibody Positive; Hepatitis C Antibody Negative (Negative)
[2024-04-09 07:45] LABS: Osmolality Urine 97 mOsm/kg (300-900)
[2024-04-09 07:50] LABS: Urine Sodium 31 mmol/L (30-90)
[2024-04-09] MEDS: FOLVITE 1 MG PO (08:05)
[2024-04-09] MEDS: THIAMINE INJECTION 200 MG IV ×2 (08:05→20:42)
--- NOTE | 2024-04-09 10:04 | PTCARENOTE ---
Pt woke from sleep. Pt visibly anxious. Coming out of room and looking into other patients rooms. Says there are people out here talking about her. Says people have hacked into her phone. I was able to talk to pt, calm her down, get her to
return to room but she insists her hallucinations are real.
[2024-04-09 10:14] LABS: Osmolality Urine 156 mOsm/kg (300-900)
[2024-04-09] MEDS: ATIVAN 1 MG PO (10:21)
[2024-04-09 10:25] LABS: Urine Sodium 35 mmol/L (30-90)
[2024-04-09 10:33] LABS: Hepatitis B Core Ab, IgM Negative (Negative)
--- NOTE | 2024-04-09 11:22 | CS.PSYCHR ---
Consult Summary - Psychiatry
-
Pt is a 34 yo female with hx of alcohol use, seen in ED 4 days ago with binge drinking, who presented overnight/early am 04/09 with anxiety, hallucinations, paranoid ideation. On interview, pt sitting up in chair, stating a neighbor broke in and
put cameras everywhere in her apartment, states 'I know they're there' though not able to say she found any actual cameras. Pt has ideas of reference, convinced that the 'girl next door (in the ED) has been talking about her for 3 days, hacked her
phone and is 'going through everything.' Pt not able to question perceptions. Labs significant for low Sodium, elevated AST/ALT, UDS + for benzo and MJ. Pt reports hx of seizure and hx of hallucinations from alcohol withdrawal. She states she
has a seizure within the past week, though noted on ER visit 04/05. Pt c/o feeling anxious, shaky, stomach upset, H/A. No agitation, no overt RIS.
Psych Hx: psychiatric eval/tx about 3 years ago, when hospitalized for a seizure, admitted for 5 days per pt at [facility]. Denies hx of medications. No psychiatric follow up currently
SH: lives with bf and 7 yo son in [place]. Pt has a delivery 'side gig'
FH: mother- Bipolar d/o or Schizophrenia- details unclear
MSE: alert, sensorium appears intact, making eye contact, answering questions, though limited historian. Pt c/o being watched/monitored/hacked as above. Pt reports people talking about her/ AH with ideas of reference. Insight poor
Imp: Unspecified psychosis. Alcohol Use d/o, hx of withdrawal seizure. MJ use (UDS positive). R/o TME (hyponatremia, elevated transaminases, alcohol use/withdrawal)
Rec: agree with [facility] for alcohol withdrawal risk
will order prn antipsychotic and monitor as medical stabilization progresses. Will follow and continue to assess re: disposition
--- NOTE | 2024-04-09 12:56 | W.PN.HOSP.TC ---
Today's Communication/Plan
-
Continue with oral fluid restriction
Trend BMP and CBC
As needed APD regimen per psychiatry
Assessment / Plan
Assessment / Plan
#Euvolemic hypotonic hyponatremia
-High suspicion for psychogenic polydipsia, states she was drinking a lot of fluid and not eating a lot prior to admission
-Presented with serum sodium 1.6; did not suspect symptoms of hallucinations are related
-Urine studies not consistent with SIADH, uric acid level normal; she is on Lexapro as outpatient
-Was started on oral fluid restriction upon admission; s/p 500 mL IV fluid
-Nephrology consulted, recs pending
Plan
-Continue with 1200 mL dietary fluid restriction daily
-Continue to trend BMP, goal 6-8 mEq/d correction
-Hold escitalopram for now
-Monitor I/O's
#Leukocytosis
-Presented with WBC 20.9, no obvious source of infection
-Review of previous labs do show persistent leukocytosis of unclear origin
-Has not had any fevers recorded while here, no complaints prior to admission
-Will continue to monitor temperature curve and trend CBC
-Consider cultures and empiric broad-spectrum antibiotics for new fever
#Hepatic steatosis
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
-Had mildly elevated transaminases of <2x ULN; RUQ US with diffuse steatosis
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
-Continue to monitor LFTs and avoid unnecessary hepatotoxins
#Unspecified psychosis
#Audio and visual hallucinations
-Unclear etiology, cannot rule out TME from hyponatremia versus alcohol withdrawal
-Was seen by psychiatry who recommended as needed antipsychotic regimen which has been started
-Will continue to monitor mental status with correction of the above issues
DVT prophylaxis: Subcutaneous Lovenox
Diet: Regular, 1200 mL daily Free water restriction
CODE STATUS: Full code
Anticipated Discharge: 24 - 48 hours
Subjective/Interval History
-
Date of Service: April 09, 2024
Seen and examined at the bedside in the ED this morning. No acute events since admission. AFVSS at time of my assessment.
She states she felt improved though intermittently still having audio/visual hallucinations. Describes thinking she saw somebody that looked and sounded like her mother however she was not there. Also described bright spots in visual field.
Complains of a headache as well. Mentions that she was not eating much in the days preceding hospitalization, states she was drinking a lot of water however
Denies chest pain, dyspnea, fevers or chills, nausea or vomiting, diarrhea, urinary frequency, paresthesias or weakness, bleeding or bruising.
Objective Data
-
Labs:
Laboratory Results
04/09/24
06:01
WBC 20.9 H
Hgb 13.9
Hct 40.2
Plt Count 332
Vital Signs:
Vital Signs
Temp Pulse Resp BP Pulse Ox
97.5 F 50 14 104/86 97
04/09/24 07:30 04/09/24 07:30 04/09/24 07:30 04/09/24 07:30 04/09/24 10:44
Review of Systems
-
History Source: Patient
All other systems: Reviewed and negative
Physical Exam
-
General: Well Nourished, No Apparent Distress and Comfortable
HEENT: Normocephalic, Atraumatic, Moist Mucous Membranes and PERRLA
Respiratory: Clear to Auscultation and Non Labored Respirations; Negative Wheezes, Rales or Rhonchi
Cardiac: Regular Rhythm and S1/S2; Negative Murmur, Rub or Gallop
GI: Soft, Nontender, Nondistended and Normal Bowel Sounds
Musculoskeletal: No Clubbing, No Cyanosis and No Edema
Skin: Warm, Dry and Normal Turgor; Negative Rash
Neuro: AO x 3, Nonfocal/Grossly Intact and Central Nerve's Intact; Negative Tremors or Slurred Speech
Psych: Calm
Data Reviewed
-
Labs: Labs Reviewed by me and Discussed with Patient
--- NOTE | 2024-04-09 15:21 | CM ---
Cm reviewed medical records. Patient is currently psychotic and unable to participate in IA. CM will continue to follow as needed.
[2024-04-09] MEDS: RISPERDAL M-TAB (ORALLY DISINTEGRATING) 1 MG PO (15:22)
--- NOTE | 2024-04-09 16:10 | W.CON.NEPH ---
Consultation
-
Date/Time Consultation Requested: 04/09/2024 9 AM
Date/Time Consultation Performed: 04/09/2024 4 PM
Requesting Provider: Dr. Greenfield
Performing Provider: Dr. Howell
Reason for Consultation: Hyponatremia
Medical History
-
Chief Complaint: Panic episode
History of Present Illness:
This is a 34-year-old female who has history of significant anxiety on medications as well as alcohol abuse who presented to the emergency room with severe anxiety, paranoid delusions and hallucinations. She was in the ER 4 days prior to admission
following an alcohol binge and was discharged home. The symptoms however continue to worsen she return to the emergency room for further evaluation. Blood work had shown sodium of 126 and we are asked to assist in management of the hyponatremia.
She does report significant fluid intake including up to 3 L of vodka per day as well as water tea and juice. She says that she only eats maybe 1 meal per day as well.
Past Medical History
Anxiety, panic attacks, alcohol abuse
Social History
Tobacco: Smoker and Vaping
Alcohol: Binge Drinker
Family History
Family History: Not Pertinent
Allergies / Home Medications
Allergy/AdvReac Type Severity Reaction Status Date / Time
No Known Allergies Allergy Unverified 12/24/23 08:31
�Medication �Instructions �Recorded �Confirmed �Type
clonidine HCl 0.1 mg tablet 0.1 mg PO TIDPRN PRN anxiety 04/09/24 04/09/24 History
cyanocobalamin (vitamin B-12) 500 500 mcg PO DAILY Supplement 04/09/24 04/09/24 History
mcg tablet
escitalopram oxalate 20 mg tablet 20 mg PO DAILY depression/anxiety 04/09/24 History
(Lexapro)
kava (piper methysticum) 25 mg/mL 500 mg PO DAILY Supplement 04/09/24 04/09/24 History
oral drops
magnesium oxide 500 mg PO DAILY Supplement 04/09/24 04/09/24 History
zinc gluconate 50 mg tablet 50 mg PO DAILY Supplement 04/09/24 04/09/24 History
Review of Systems
-
No fevers chills or sweats. No excessive thirst. No decrease in appetite. No issues with urination.
Physical Exam
Vital Signs
Vital Signs
Temp Pulse Resp BP Pulse Ox
98.7 F 52 18 101/59 100
04/09/24 15:13 04/09/24 15:13 04/09/24 15:13 04/09/24 15:13 04/09/24 15:13
Lab Results
WBC 20.9 10^3/uL (4.8-10.8) H 04/09/24 06:01
RBC 4.56 10^6/uL (4.20-5.40) 04/09/24 06:01
Hgb 13.9 g/dL (12.0-16.0) 04/09/24 06:01
Hct 40.2 % (37.0-47.0) 04/09/24 06:01
Plt Count 332 10^3/uL (130-400) 04/09/24 06:01
eGFR > 60.00 04/09/24 00:22
Albumin 3.9 g/dl (3.5-5.0) 04/09/24 00:22
Laboratory Tests
04/09/24
09:30
Urine Osmolality 156 L
Urine Sodium 35
Physical Exam
Patient is awake alert oriented and in no distress. Mood and affect were pleasant, insight and judgment were good. Pupils are equal round and reactive to light, extraocular movements are intact, sclera were anicteric. Hearing was normal, ears and
nose are intact. Oropharynx was clear. Neck was supple with trachea midline and no thyromegaly. Heart was regular rate and rhythm without rubs. Lower extremities without edema. Lungs were clear to auscultation bilaterally and with normal
excursion. Abdomen was soft, nontender, with normal active bowel sounds, and no hepatosplenomegaly. Skin was without rash and with normal turgor.
Data Reviewed
-
Radiology: Image Personally Visualized and interpreted (EKG on 04/09/2024 by my reading shows sinus tachycardia)
Ultrasound: Report Reviewed by me (Abdominal ultrasound on 04/09/2024 shows fatty liver)
Labs: Labs Reviewed by me
Old Records: Reviewed
Assessment/Plan
-
Assessment
Alcohol abuse
Hyponatremia
Panic attack anxiety
Plan
Urine studies suggest this is more related to polydipsia possibly some component of solute solvent mismatch
Fluid restriction 40-48 ounces
Increase p.o. intake
Serial BMP
If blood pressure drops, saline may be used
[2024-04-09 18:32] LABS: Blood Urea Nitrogen 5 mg/dl (7-17); Calcium 8.9 mg/dl (8.4-10.2); Carbon Dioxide 25 mmol/L (22-30); Chloride 101 mmol/L (98-107); Estimated Creatinine Clearance > 125 ml/min; Glucose 135 mg/dl (70-99); Potassium 3.7 mmol/L (3.5-5.1); Sodium 139 mmol/L (135-145); eGFR > 60.00
[2024-04-09] MEDS: LOVENOX 40 MG SC (20:42)
[2024-04-10 07:00] VITALS: BP 99/58
[2024-04-10 08:25] LABS: % Basophils 0.3 % (0-2); % Eosinophils 3.9 % (0-6); % Immature Granulocytes 0.4 % (0-0.5); % Lymphocytes 13.5 % (20.5-51.1); % Neutrophils 75.9 % (42.2-75.2); Absolute Eosinophils 0.4 10^3/uL (0-0.7); Absolute Lymphocytes 1.4 10^3/uL (1.2-3.4); Absolute Monocytes 0.6 10^3/uL (0.1-0.6); Absolute Neutrophils 8.1 10^3/uL (1.4-6.5); Hematocrit 39.7 % (37.0-47.0); Hemoglobin 13.6 g/dL (12.0-16.0); Mean Corp Hgb Conc. 34.3 g/dL (33.0-37.0); Mean Corpuscular Hgb 31.3 pg (27.0-31.0); Mean Corpuscular Volume 91.3 fL (81.0-99.0); Nucleated Red Blood Cells % 0 %; Platelet Count 230 10^3/uL (130-400); Red Blood Cell Count 4.35 10^6/uL (4.20-5.40); Red Cell Dist. Width 12.7 % (11.5-14.5); White Blood Cell Count 10.6 10^3/uL (4.8-10.8)
[2024-04-10 08:40] LABS: ALT (SGPT) 233 U/L (0-35); AST (SGOT) 287 U/L (14-36); Albumin 3.6 g/dl (3.5-5.0); Alkaline Phosphatase 78 U/L (38-126); Blood Urea Nitrogen 5 mg/dl (7-17); Carbon Dioxide 24 mmol/L (22-30); Chloride 102 mmol/L (98-107); Direct Bilirubin 0.1 mg/dl (0.0-0.4); Estimated Creatinine Clearance > 125 ml/min; Glucose 106 mg/dl (70-99); Potassium 3.7 mmol/L (3.5-5.1); Sodium 140 mmol/L (135-145); Total Bilirubin 0.8 mg/dl (0.2-1.3); Total Protein 6.3 g/dl (6.3-8.2); eGFR > 60.00
[2024-04-10] MEDS: THIAMINE INJECTION 200 MG IV ×2 (09:59→20:29)
[2024-04-10] MEDS: FOLVITE 1 MG PO (09:59)
[2024-04-10] MEDS: RISPERDAL M-TAB (ORALLY DISINTEGRATING) 1 MG PO (10:18)
--- NOTE | 2024-04-10 11:43 | W.PN.HOSP.TC ---
Today's Communication/Plan
-
Continue with risperidone every 8 hours as needed
Trend LFTs
Follow-up psych recs
Assessment / Plan
Assessment / Plan
#Unspecified psychosis
#Audio and visual hallucinations
-Unclear etiology, unlikely metabolic as labs have improved and she remains with symptoms
-Differentials include schizophrenia, depression with psychosis; less likely Bipolar 1 as she does not seem manic
-Was seen by psychiatry who recommended as needed antipsychotic regimen which has been started
-Will continue to monitor mental status and provide risperidone as needed every 8 hours
-Psychiatry following, further recommendations appreciated
#Euvolemic hypotonic hyponatremia (RESOLVED)
-High suspicion for psychogenic polydipsia, states she was drinking a lot of fluid and not eating a lot prior to admission
-Presented with serum sodium 1.6; did not suspect symptoms of hallucinations are related
-Urine studies not consistent with SIADH, uric acid level normal; she is on Lexapro as outpatient
-Was started on oral fluid restriction upon admission; s/p 500 mL IV fluid
#Leukocytosis (RESOLVED)
-Presented with WBC 20.9, no obvious source of infection
-Review of previous labs do show persistent leukocytosis of unclear origin
-Has not had any fevers recorded while here, no complaints prior to admission
-Resolved without antibiotics
#Hepatic steatosis
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
-Had mildly elevated transaminases of <2x ULN; RUQ US with diffuse steatosis
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
-Continue to monitor LFTs and avoid unnecessary hepatotoxins
DVT prophylaxis: Subcutaneous Lovenox
Diet: Regular, 1200 mL daily Free water restriction
CODE STATUS: Full code
Anticipated Discharge: > 48 hours
Subjective/Interval History
-
Date of Service: April 10, 2024
Seen and examined at the bedside. No acute events reported overnight. AFVSS this morning.
Her mental status seems about the same as yesterday. States she is still having hallucinations without much improvement. Currently on risperidone every 8 hours as needed for psychosis symptoms. She does mention a family history of psychiatric
illness. Has extensive history of anxiety and depression to the family. Also mentions bipolar disorder on the side of her mother, states her mother used to have episodes of selena and hallucinations.
Denies any new acute complaints including chest pain, dyspnea, fevers or chills, lightheadedness, paresthesias or weakness, bleeding or bruising, abdomen pain, nausea or vomiting
Objective Data
-
Labs:
Laboratory Results
04/10/24
07:54
WBC 10.6
Hgb 13.6
Hct 39.7
Plt Count 230 D
Sodium 140
Potassium 3.7
Chloride 102
Carbon Dioxide 24
BUN 5 L
Creatinine 0.6
Glucose 106 H
Calcium 9.0
Total Bilirubin 0.8
AST 287 H
ALT 233 H
Alkaline Phosphatase 78
Vital Signs:
Vital Signs
Temp Pulse Resp BP Pulse Ox
98.8 F 55 16 99/58 100
04/10/24 07:00 04/10/24 07:00 04/10/24 07:00 04/10/24 07:00 04/10/24 07:00
Review of Systems
-
History Source: Patient
All other systems: Reviewed and negative
Physical Exam
-
General: No Apparent Distress and Comfortable
HEENT: Normocephalic, Atraumatic, Moist Mucous Membranes and Anicteric
Respiratory: Clear to Auscultation and Non Labored Respirations
Cardiac: Regular Rhythm and S1/S2; Negative Murmur, Rub or Gallop
GI: Soft, Nontender, Nondistended and Normal Bowel Sounds
Musculoskeletal: No Clubbing, No Cyanosis and No Edema
Skin: Warm and Dry; Negative Rash
Neuro: AO x 3, Nonfocal/Grossly Intact and Central Nerve's Intact
Psych: Anxious and Other (Does not seem to be responding to internal stimuli at time of my eval)
Data Reviewed
-
Labs: Labs Reviewed by me and Discussed with Patient
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
--- NOTE | 2024-04-10 13:56 | CM ---
major gifts manager reviewed patient's chart and patient was admitted under OBS, OBS letter provided to patient and signed, placed on chart. Patient lives with her fiancee in an apartment, patient is independent with adl's and ambulation, no dme, patient
drives. Patient's 7 y.o son also lives with patient however bilingual case manager confirmed that biological father is taking care of 7 y.o son. Patient reports that she works for [employer]. Patient admitted from crisis for possible stabilization, bilingual case manager
will await recommendations for psychiatry.
Plan; To follow with patient progress and assist with discharge planning.
--- NOTE | 2024-04-10 13:58 | W.PN.NEPH.PH ---
Today's Communication / Plan
-
follow labs
encourage solute intake and mildly limit free fluid
Assessment/Plan
-
Assessment
Alcohol abuse
Hyponatremia
Panic attack anxiety
Plan:
sodium corrected to normal
Urine studies suggest this is more related to polydipsia possibly some component of solute solvent mismatch
Fluid restriction liberate to 50 ounces/day
Increase p.o. solute intake
BP soft, monitor. not on medication
will s/o, call with ?s
-
-
Date of Service: April 10, 2024
CC / HPI / ROS
-
Chief Complaint:
Hypoantremia
History of Present Illness:
sodium improved to 140
BP soft, no fever
LFTs are high
Review of Systems:
no cp or sob
dry mouth
no other complaints
Labs
-
Labs:
WBC 10.6 10^3/uL (4.8-10.8) 04/10/24 07:54
RBC 4.35 10^6/uL (4.20-5.40) 04/10/24 07:54
Hgb 13.6 g/dL (12.0-16.0) 04/10/24 07:54
Hct 39.7 % (37.0-47.0) 04/10/24 07:54
Plt Count 230 10^3/uL (130-400) D 04/10/24 07:54
Sodium 140 mmol/L (135-145) 04/10/24 07:54
Potassium 3.7 mmol/L (3.5-5.1) 04/10/24 07:54
Chloride 102 mmol/L (98-107) 04/10/24 07:54
Carbon Dioxide 24 mmol/L (22-30) 04/10/24 07:54
BUN 5 mg/dl (7-17) L 04/10/24 07:54
Creatinine 0.6 mg/dL (0.6-1.0) 04/10/24 07:54
eGFR > 60.00 04/10/24 07:54
Glucose 106 mg/dl (70-99) H 04/10/24 07:54
Calcium 9.0 mg/dl (8.4-10.2) 04/10/24 07:54
Albumin 3.6 g/dl (3.5-5.0) 04/10/24 07:54
Physical Exam
-
Vital Signs:
Vital Signs
Temp Pulse Resp BP Pulse Ox
98.8 F 55 16 99/58 100
04/10/24 07:00 04/10/24 07:00 04/10/24 07:00 04/10/24 07:00 04/10/24 07:00
Cardiovascular:: Regular rate and rhythm
Respiratory:: Bilateral: CTA
Lung Excursion:: Normal
Abdomen:: Nontender and Soft
Extremity Edema:: None: Bilateral:
Eagle Catheter: No
[2024-04-10 15:31] VITALS: BP 97/60
[2024-04-10] MEDS: LOVENOX 40 MG SC (18:10)
[2024-04-10] MEDS: ATIVAN 1 MG PO ×2 (20:28→22:46)
[2024-04-10] MEDS: RISPERDAL 1 MG PO (21:29)
[2024-04-10] MEDS: MELATONIN 5 MG PO (21:48)
[2024-04-10 22:55] VITALS: BP 94/59
[2024-04-11 07:30] VITALS: BP 112/65
[2024-04-11 08:19] LABS: % Basophils 0.3 % (0-2); % Eosinophils 5.1 % (0-6); % Immature Granulocytes 0.6 % (0-0.5); % Lymphocytes 19.9 % (20.5-51.1); % Monocytes 8.8 % (1.7-9.3); % Neutrophils 65.3 % (42.2-75.2); Absolute Eosinophils 0.4 10^3/uL (0-0.7); Absolute Lymphocytes 1.4 10^3/uL (1.2-3.4); Absolute Monocytes 0.6 10^3/uL (0.1-0.6); Absolute Neutrophils 4.6 10^3/uL (1.4-6.5); Hematocrit 40.3 % (37.0-47.0); Hemoglobin 13.5 g/dL (12.0-16.0); Mean Corp Hgb Conc. 33.5 g/dL (33.0-37.0); Mean Corpuscular Volume 92.4 fL (81.0-99.0); Mean Platelet Volume 11.3 fL (7.4-10.4); Nucleated Red Blood Cells % 0 %; Platelet Count 185 10^3/uL (130-400); Red Blood Cell Count 4.36 10^6/uL (4.20-5.40); Red Cell Dist. Width 12.5 % (11.5-14.5)
[2024-04-11 08:24] LABS: INR 1.06; PT 13.9 Sec (11.4-14.6)
[2024-04-11 08:26] VITALS: BP 112/65
[2024-04-11 09:08] LABS: ALT (SGPT) 345 U/L (0-35); AST (SGOT) 345 U/L (14-36); Albumin 3.5 g/dl (3.5-5.0); Alkaline Phosphatase 80 U/L (38-126); Blood Urea Nitrogen 7 mg/dl (7-17); Carbon Dioxide 27 mmol/L (22-30); Chloride 101 mmol/L (98-107); Direct Bilirubin 0.2 mg/dl (0.0-0.4); Estimated Creatinine Clearance 110 ml/min; Glucose 94 mg/dl (70-99); Potassium 4.1 mmol/L (3.5-5.1); Sodium 139 mmol/L (135-145); Total Bilirubin 0.5 mg/dl (0.2-1.3); eGFR > 60.00
[2024-04-11] MEDS: RISPERDAL 0.5 MG PO (10:12)
[2024-04-11] MEDS: FOLVITE 1 MG PO (10:12)
--- NOTE | 2024-04-11 10:15 | W.PN.HOSP.TC ---
Today's Communication/Plan
-
Continue risperidone every 8 hours
Trend LFTs
Psychiatry recommendations appreciated
Assessment / Plan
Assessment / Plan
#Unspecified psychosis
#Audio and visual hallucinations
-Unclear etiology, differentials include alcohol related psychosis versus depression with psychosis; less likely bipolar d/o
-Was seen by psychiatry who recommended as needed antipsychotic regimen which has been started
-Will continue to monitor mental status and provide risperidone every 8 hours standing
-Psychiatry following, further recommendations appreciated
#Euvolemic hypotonic hyponatremia (RESOLVED)
-High suspicion for psychogenic polydipsia, states she was drinking a lot of fluid and not eating a lot prior to admission
-Presented with serum sodium 1.6; did not suspect symptoms of hallucinations are related
-Urine studies not consistent with SIADH, uric acid level normal; she is on Lexapro as outpatient
-Was started on oral fluid restriction upon admission; s/p 500 mL IV fluid
#Leukocytosis (RESOLVED)
-Presented with WBC 20.9, no obvious source of infection
-Review of previous labs do show persistent leukocytosis of unclear origin
-Has not had any fevers recorded while here, no complaints prior to admission
-Resolved without antibiotics
#Hepatic steatosis
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
-Had mildly elevated transaminases of <2x ULN; RUQ US with diffuse steatosis
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
-Continue to monitor LFTs and avoid unnecessary hepatotoxins
-Transaminases continue to uptrend, AST and ALT 345 today
-Consider GI consult if continuing to worsen
DVT prophylaxis: Subcutaneous Lovenox
Diet: Regular, 1200 mL daily Free water restriction
CODE STATUS: Full code
Anticipated Discharge: > 48 hours
Subjective/Interval History
-
Date of Service: April 11, 2024
Seen and examined at the bedside. No acute events reported overnight. AFVSS this morning.
She states she is still having audio hallucinations though visual hallucinations improved. No longer seeing human figures, mentions abnormal spots in her visual field
She denies acute complaints including chest pain, dyspnea, fevers or chills, GI issues, urinary issues, bleeding or bruising, paresthesias or weakness.
Objective Data
-
Labs:
Laboratory Results
04/11/24
07:23
WBC 7.0
Hgb 13.5
Hct 40.3
Plt Count 185
PT 13.9
INR 1.06
Sodium 139
Potassium 4.1
Chloride 101
Carbon Dioxide 27
BUN 7
Creatinine 0.7
Glucose 94
Calcium 9.0
Total Bilirubin 0.5
AST 345 H
ALT 345 H
Alkaline Phosphatase 80
Vital Signs:
Vital Signs
Temp Pulse Resp BP Pulse Ox
97.7 F 70 18 112/65 98
04/11/24 07:30 04/11/24 07:30 04/11/24 07:30 04/11/24 07:30 04/11/24 07:30
I&O
04/10/24 04/11/24 04/12/24
06:59 06:59 06:59
Intake Total 960 / 960
Balance 960 / 960
Review of Systems
-
History Source: Patient
All other systems: Reviewed and negative
Physical Exam
-
General: No Apparent Distress and Comfortable
HEENT: Normocephalic, Atraumatic and Moist Mucous Membranes
Respiratory: Clear to Auscultation and Non Labored Respirations
Cardiac: Regular Rhythm and S1/S2; Negative Murmur
GI: Soft, Nontender, Nondistended and Normal Bowel Sounds
Musculoskeletal: No Clubbing, No Cyanosis, No Edema and Normal Gait & Station
Skin: Warm and Dry; Negative Rash
Neuro: AO x 3, Nonfocal/Grossly Intact and Central Nerve's Intact; Negative Tremors
Psych: Calm and Intact Judgement/Insight
Data Reviewed
-
Labs: Labs Reviewed by me and Discussed with Patient
[2024-04-11] MEDS: FLUSH (NSS) 1 FLUSH IV (10:55)
[2024-04-11] MEDS: THIAMINE INJECTION 200 MG IV ×2 (10:55→21:17)
--- NOTE | 2024-04-11 10:59 | W.PN.UPDATE ---
Update Note
Progress Note Update
patient seen chart reviewed. discussed w nursing and with cm. the patient remains very psychotic but she is willing to entertain the idea that much of what she feels is happening ...people talking about her ...planting bugs and cameras in her
appartment has to do with psychosis which is likely related at least in part to etoh. she is as a result massively anxious. we talked about so many of the stressors in her life. while son is w his father now, (patient and this man do get along .
they were together for eight years and eventually split. she said he is a good father to her son and they are respectful of each other), she fears that children and youth will soon come to visit her and wrest custody from her. she takes it to the
next step and worries they will send her to skilled nursing. 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 son has adhd and sounds as though he is quite a handful to patient. i would recommend a dual dx unit.
patient is not willing to stay in hospital given her experience at [facility] in the past. she is willing to consider php. i called the director of the [facility]...he will be in later. will ask cm to fax her info to [phone]. the one stumbling block
is jasmina MCKEON but she may be eligible for tamika MCKEON as she has lived her since december. texted cm to call me. will increase risperdal to one mg bid and hold there for a while to give it time to become effective. have also left a prn of ativan for anxiety.
while it is recognized this could be addictive patient is very very symptomatic and struggling to contain her angst.
[2024-04-11] MEDS: ATIVAN 1 MG PO ×2 (12:03→22:33)
--- NOTE | 2024-04-11 13:16 | CM ---
Plan to evaluate and submit for PHP at [facility].
Plan; To reach out to PHP at [facility] and fax clinicals.
[2024-04-11 15:00] VITALS: BP 94/73
[2024-04-11] MEDS: LOVENOX 40 MG SC (17:31)
[2024-04-11] MEDS: RISPERDAL 1 MG PO (21:17)
[2024-04-11] MEDS: MELATONIN 5 MG PO (22:27)
[2024-04-11 22:34] VITALS: BP 108/74
[2024-04-12] MEDS: VITAMIN B1 100 MG PO ×2 (07:41→20:10)
[2024-04-12] MEDS: FOLVITE 1 MG PO (07:41)
[2024-04-12] MEDS: RISPERDAL 1 MG PO ×2 (07:42→20:10)
[2024-04-12 07:50] VITALS: BP 105/73
[2024-04-12 08:50] LABS: ALT (SGPT) 310 U/L (0-35); AST (SGOT) 203 U/L (14-36); Albumin 3.8 g/dl (3.5-5.0); Alkaline Phosphatase 76 U/L (38-126); Blood Urea Nitrogen 6 mg/dl (7-17); Calcium 9.2 mg/dl (8.4-10.2); Carbon Dioxide 24 mmol/L (22-30); Chloride 105 mmol/L (98-107); Estimated Creatinine Clearance > 125 ml/min; Glucose 114 mg/dl (70-99); Potassium 4.1 mmol/L (3.5-5.1); Sodium 141 mmol/L (135-145); Total Bilirubin 0.3 mg/dl (0.2-1.3); Total Protein 6.6 g/dl (6.3-8.2); eGFR > 60.00
--- NOTE | 2024-04-12 10:15 | W.PN.HOSP.TC ---
Today's Communication/Plan
-
Continue with risperidone 1 mg twice daily
Trend LFTs
Follow-up psychiatry recommendations
Assessment / Plan
Assessment / Plan
#Unspecified psychosis
#Audio and visual hallucinations
-Unclear etiology, differentials include alcohol related psychosis versus depression with psychosis; less likely bipolar d/o
-Was seen by psychiatry who recommended as needed antipsychotic regimen which has been started
-Will continue to monitor mental status and provide risperidone 1 mg twice daily
-Psychiatry following, further recommendations appreciated
#Hepatic steatosis
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
-Had mildly elevated transaminases of <2x ULN; RUQ US with diffuse steatosis
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
-Continue to monitor LFTs and avoid unnecessary hepatotoxins
-Transaminases have now started to downtrend
-Continue to trend LFTs for now, avoid hepatotoxins
#Euvolemic hypotonic hyponatremia (RESOLVED)
-High suspicion for psychogenic polydipsia, states she was drinking a lot of fluid and not eating a lot prior to admission
-Presented with serum sodium 1.6; did not suspect symptoms of hallucinations are related
-Urine studies not consistent with SIADH, uric acid level normal; she is on Lexapro as outpatient
-Was started on oral fluid restriction upon admission; s/p 500 mL IV fluid
#Leukocytosis (RESOLVED)
-Presented with WBC 20.9, no obvious source of infection
-Review of previous labs do show persistent leukocytosis of unclear origin
-Has not had any fevers recorded while here, no complaints prior to admission
-Resolved without antibiotics
DVT prophylaxis: Subcutaneous Lovenox
Diet: Regular, 1200 mL daily Free water restriction
CODE STATUS: Full code
Anticipated Discharge: 24 - 48 hours
Subjective/Interval History
-
Date of Service: April 12, 2024
Seen and examined at bedside. No acute events report overnight. AFVSS this morning.
She states that she did have some audio hallucinations yesterday where she felt people were calling her name or talking about her. Some paranoia secondary to this. She does state that the visual hallucinations have resolved. Overall feels that
she is having minimal hallucinations outside of the voice that she heard yesterday evening.
Denies new acute complaints including chest pain, dyspnea, fevers or chills, GI issues, urinary issues, paresthesia or weakness
Objective Data
-
Labs:
Laboratory Results
04/12/24
08:11
Sodium 141
Potassium 4.1
Chloride 105
Carbon Dioxide 24
BUN 6 L
Creatinine 0.6
Glucose 114 H
Calcium 9.2
Total Bilirubin 0.3
AST 203 H
ALT 310 H
Alkaline Phosphatase 76
Vital Signs:
Vital Signs
Temp Pulse Resp BP Pulse Ox
97.9 F 98 18 105/73 99
04/12/24 07:50 04/12/24 07:50 04/12/24 07:50 04/12/24 07:50 04/12/24 07:50
I&O
04/11/24 04/12/24 04/13/24
06:59 06:59 06:59
Intake Total 960 / 960 600 / 600
Balance 960 / 960 600 / 600
Review of Systems
-
History Source: Patient
All other systems: Reviewed and negative
Physical Exam
-
General: Well Nourished, No Apparent Distress and Comfortable
HEENT: Normocephalic, Atraumatic and Moist Mucous Membranes
Respiratory: Clear to Auscultation and Non Labored Respirations
Cardiac: Regular Rhythm and S1/S2; Negative Murmur
GI: Soft, Nontender, Nondistended and Normal Bowel Sounds
Musculoskeletal: No Clubbing, No Cyanosis, No Edema and Normal Gait & Station
Skin: Warm and Dry; Negative Rash
Neuro: AO x 3, Nonfocal/Grossly Intact and Central Nerve's Intact
Psych: Calm
[2024-04-12] MEDS: ATIVAN 1 MG PO (10:23)
--- NOTE | 2024-04-12 11:03 | CM ---
Addendum entered by Nora Cheung 04/12/24 16:43:
Per admissions at [facility] patient is to acute for their program.
[facility] is closed for now.
[facility] do not accept patient's insurance.
Addendum entered by Nora Cheung 04/12/24 16:21:
Per [facility] they do not accept patient's insurance and it will take one month to transfer patient's insurance to medicaid [place], meanwhile high risk case manager sent a referral to [facility] who are reviewed patient notes, they do accept
patient's insurance. [facility] [phone], .
[facility] is closed for now.
Plan; Await determination from [facility], patient will need to provide her own transportation.
Original Note:
Patient switched to inpatient, patient made aware, high risk case manager reached out to [facility] and spoke with Nishant [phone] who provided contact information to payroll and benefits coordinator, Jie Noble [phone] for insurance review.
Plan; Per [facility] plan is to review patient's insurance first and then review clinical.
--- NOTE | 2024-04-12 13:09 | W.PN.UPDATE ---
Addendum entered and electronically signed by Jamar Villar MD 04/12/24 13:50:
received message from [facility]. they have not gotten records we sent them. i will ask ms [facility] to send again. her ma needs to be changed to [place] before they can take accept her but the cm at [facility] could help w that. will talk to ms davis cm
Original Note:
Update Note
Progress Note Update
patient seen case reviewed. spoke with cm. she has sent the info [facility] requested. i have yet to hear from them as to whether they will accept her. i would prefer to have a definite starting date for the php before we dc her. i will keep trying to
call them. patient is a little less anxious with the risperdal but still w delusions. if we have to dc her today would send her with risperdal one mg bid and i would give her #10 ativan one mg for use if she is overwhelmed with anxiety. i have
explained to her that ativan is sedating and addicting and should be used only rarely and do not drive or operate machinery when taking it. i will hopefully have a start date for the php later today. she has said if php does not work for her she
would consider in pt d and a rx and for a referral she could call the crisis center.
--- NOTE | 2024-04-12 14:48 | W.PN.UPDATE ---
Update Note
Progress Note Update
spoke to f staff. while they will help patient get her MA switched to bucks, they cannot have her come to [facility] until this is done and it could take up to a month. in the meantime the f staff member suggested [facility] jasmina
ma. will communicate this to .
[2024-04-12 15:05] VITALS: BP 120/86
[2024-04-12] MEDS: LOVENOX 40 MG SC (18:30)
[2024-04-12] MEDS: MELATONIN 5 MG PO (21:04)
[2024-04-12 23:04] VITALS: BP 112/83
[2024-04-13 07:48] VITALS: BP 117/82
[2024-04-13] MEDS: RISPERDAL 1 MG PO ×2 (08:05→20:29)
[2024-04-13] MEDS: VITAMIN B1 100 MG PO ×2 (08:05→20:29)
[2024-04-13] MEDS: ATIVAN 1 MG PO ×2 (08:05→20:34)
[2024-04-13] MEDS: FOLVITE 1 MG PO (08:06)
--- NOTE | 2024-04-13 11:06 | W.PN.HOSP.TC ---
Today's Communication/Plan
-
dispo planning
Assessment / Plan
Assessment / Plan
#Unspecified psychosis
#Audio and visual hallucinations
-Unclear etiology, differentials include alcohol related psychosis versus depression with psychosis; less likely bipolar d/o
-Was seen by psychiatry who recommended as needed antipsychotic regimen which has been started
-Will continue to monitor mental status and provide risperidone 1 mg twice daily
-Psychiatry following, further recommendations appreciated - working on dispo
#Hepatic steatosis
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
-Had mildly elevated transaminases of <2x ULN; RUQ US with diffuse steatosis
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
-Continue to monitor LFTs and avoid unnecessary hepatotoxins
-Transaminases have now started to downtrend
-Continue to trend LFTs for now, avoid hepatotoxins
#Euvolemic hypotonic hyponatremia (RESOLVED)
-High suspicion for psychogenic polydipsia, states she was drinking a lot of fluid and not eating a lot prior to admission
-Presented with serum sodium 126; did not suspect symptoms of hallucinations are related
-Urine studies not consistent with SIADH, uric acid level normal; she is on Lexapro as outpatient
-Was started on oral fluid restriction upon admission; s/p 500 mL IV fluid
#Leukocytosis (RESOLVED)
-Presented with WBC 20.9, no obvious source of infection
-Review of previous labs do show persistent leukocytosis of unclear origin
-Has not had any fevers recorded while here, no complaints prior to admission
-Resolved without antibiotics
DVT prophylaxis: Subcutaneous Lovenox
Diet: Regular, 1200 mL daily Free water restriction
CODE STATUS: Full code
Anticipated Discharge: > 48 hours
Subjective/Interval History
-
Date of Service: April 13, 2024
no longer having hallucinations
Objective Data
-
Vital Signs:
Vital Signs
Temp Pulse Resp BP Pulse Ox
98.6 F 94 18 117/82 99
04/13/24 07:48 04/13/24 07:48 04/13/24 07:48 04/13/24 07:48 04/13/24 07:48
I&O
04/12/24 04/13/24 04/14/24
06:59 06:59 05:59
Intake Total 600 / 600 1140 / 1140
Balance 600 / 600 1140 / 1140
Review of Systems
-
History Source: Patient
All other systems: Reviewed and negative
Physical Exam
-
General: Well Nourished, No Apparent Distress and Comfortable
HEENT: Normocephalic, Atraumatic and Moist Mucous Membranes
Respiratory: Clear to Auscultation and Non Labored Respirations
Cardiac: Regular Rhythm and S1/S2; Negative Murmur
GI: Soft, Nontender, Nondistended and Normal Bowel Sounds
Musculoskeletal: No Clubbing, No Cyanosis, No Edema and Normal Gait & Station
Skin: Warm and Dry; Negative Rash
Neuro: AO x 3, Nonfocal/Grossly Intact and Central Nerve's Intact
Psych: Calm
Data Reviewed
-
Diagnostic Radiology: Report Reviewed by me
Labs: Labs Reviewed by me
[2024-04-13 15:50] VITALS: BP 124/81
--- NOTE | 2024-04-13 16:50 | W.PN.UPDATE ---
Update Note
Progress Note Update
Pt seen, chart reviewed. Sitting up in bed comfortable, well kempt, pleasant. Remains agreeable to PHP - reviewed CM notes and it seems that they are waiting to hear back from [facility] as part of dispo planning. Pt admits to feeling antsy from
being in hospital room still, however is understanding of and agreeable to plan.
No changes indicated at this time, waiting to hear back from [facility] for dispo planning
[2024-04-13] MEDS: LOVENOX 40 MG SC (18:24)
[2024-04-13] MEDS: MELATONIN 5 MG PO (21:27)
[2024-04-13 23:00] VITALS: BP 125/85
[2024-04-14 07:00] VITALS: BP 129/86
[2024-04-14 07:27] LABS: 24 Hour Urine Total Volume Random mL; Chloride, Urine <20 mmol/L; Creatinine, Urine per Volume 53 mg/dL; Urine Collection Length Random hr
[2024-04-14] MEDS: FOLVITE 1 MG PO (08:23)
[2024-04-14] MEDS: RISPERDAL 1 MG PO ×2 (08:24→20:53)
[2024-04-14] MEDS: VITAMIN B1 100 MG PO ×2 (08:24→20:53)
[2024-04-14] MEDS: ATIVAN 1 MG PO ×2 (09:33→20:57)
--- NOTE | 2024-04-14 11:27 | W.PN.HOSP.TC ---
Today's Communication/Plan
-
dispo planning
Assessment / Plan
Assessment / Plan
#Unspecified psychosis
#Audio and visual hallucinations
-Unclear etiology, differentials include alcohol related psychosis versus depression with psychosis; less likely bipolar d/o
-Was seen by psychiatry who recommended as needed antipsychotic regimen which has been started
-Will continue to monitor mental status and provide risperidone 1 mg twice daily
-Psychiatry following, further recommendations appreciated - working on dispo
#Hepatic steatosis
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
-Had mildly elevated transaminases of <2x ULN; RUQ US with diffuse steatosis
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
-Continue to monitor LFTs and avoid unnecessary hepatotoxins
-Transaminases have now started to downtrend
#Euvolemic hypotonic hyponatremia (RESOLVED)
-High suspicion for psychogenic polydipsia, states she was drinking a lot of fluid and not eating a lot prior to admission
-Presented with serum sodium 126; did not suspect symptoms of hallucinations are related
-Urine studies not consistent with SIADH, uric acid level normal; she is on Lexapro as outpatient
-Was started on oral fluid restriction upon admission; s/p 500 mL IV fluid
-repeat labs tomorrow
#Leukocytosis (RESOLVED)
-Presented with WBC 20.9, no obvious source of infection
-Review of previous labs do show persistent leukocytosis of unclear origin
-Has not had any fevers recorded while here, no complaints prior to admission
-Resolved without antibiotics
DVT prophylaxis: Subcutaneous Lovenox
Diet: Regular, 1200 mL daily Free water restriction
CODE STATUS: Full code
Anticipated Discharge: 24 - 48 hours
Subjective/Interval History
-
Date of Service: April 14, 2024
feels okay
ativan helping anxiety
feels bored
Objective Data
-
Vital Signs:
Vital Signs
Temp Pulse Resp BP Pulse Ox
98.5 F 88 18 129/86 98
04/14/24 07:00 04/14/24 07:00 04/14/24 07:00 04/14/24 07:00 04/14/24 07:00
I&O
04/13/24 04/14/24 04/15/24
07:59 06:59 06:59
Intake Total
Balance
Review of Systems
-
History Source: Patient
All other systems: Reviewed and negative
Physical Exam
-
General: Well Nourished, No Apparent Distress and Comfortable
HEENT: Normocephalic, Atraumatic and Moist Mucous Membranes
Respiratory: Clear to Auscultation and Non Labored Respirations
Cardiac: Regular Rhythm and S1/S2; Negative Murmur
GI: Soft, Nontender, Nondistended and Normal Bowel Sounds
Musculoskeletal: No Clubbing, No Cyanosis, No Edema and Normal Gait & Station
Skin: Warm and Dry; Negative Rash
Neuro: AO x 3, Nonfocal/Grossly Intact and Central Nerve's Intact
Psych: Calm
Data Reviewed
-
Diagnostic Radiology: Report Reviewed by me
Labs: Labs Reviewed by me
[2024-04-14 15:00] VITALS: BP 132/83
[2024-04-14] MEDS: LOVENOX 40 MG SC (18:43)
[2024-04-14] MEDS: MELATONIN 5 MG PO (20:56)
[2024-04-14 22:53] VITALS: BP 122/82
[2024-04-15 07:00] VITALS: BP 128/68
[2024-04-15] MEDS: VITAMIN B1 100 MG PO (07:26)
[2024-04-15] MEDS: RISPERDAL 1 MG PO (07:26)
[2024-04-15] MEDS: FOLVITE 1 MG PO (07:26)
[2024-04-15] MEDS: ATIVAN 1 MG PO (07:27)
--- NOTE | 2024-04-15 08:29 | CM ---
Addendum entered by Nora Cheung 04/15/24 13:09:
Patient has been accepted at [facility] IOP appointment on at 12:30 they have been in touch with patient.
Addendum entered by Nora Cheung 04/15/24 11:10:
Referral sent to [facility], IOP, .
Addendum entered by Nora Cheung 04/15/24 09:21:
general manager food reached out to [facility] and left a message, and per voice mail for [facility] they do not open up till 10am.
Original Note:
Chart reviewed and patient has not been accepted in a PHP, per admissions at [facility] patient to too acute, manager produce will follow for possible plan for patient, referral was faxed to [facility] and they will accept they will need to change
patient's insurance which will take a month.
Plan; To follow up and assist with discharge planning for patient.
[2024-04-15 09:33] LABS: ALT (SGPT) 224 U/L (0-35); AST (SGOT) 91 U/L (14-36); Albumin 3.8 g/dl (3.5-5.0); Alkaline Phosphatase 67 U/L (38-126); Blood Urea Nitrogen 10 mg/dl (7-17); Calcium 9.5 mg/dl (8.4-10.2); Carbon Dioxide 27 mmol/L (22-30); Chloride 103 mmol/L (98-107); Estimated Creatinine Clearance 110 ml/min; Glucose 110 mg/dl (70-99); Sodium 140 mmol/L (135-145); Total Bilirubin < 0.1 mg/dl (0.2-1.3); Total Protein 6.3 g/dl (6.3-8.2); eGFR > 60.00
[2024-04-15 11:19] VITALS: BP 128/89; BP 135/95; BP 136/96; PULSE 109; PULSE 110; PULSE 90
--- NOTE | 2024-04-15 12:44 | W.PN.UPDATE ---
Update Note
Progress Note Update
patient seen chart reviewed. discussed with ranjith and dr finley. the patient is looking quite well. her hallucinations have largely receded and she is able to turn her thoughts away from delusional material when they threaten to intrude. she has
embraced sobriety although of course it will be a lot of work. she has an appt for an intake on at [facility] which is an iop and will provide her with three times weekly groups and a presriber. she is willing to take risperdal current
dose one mg bid. no ill effects noted. she should be given ten one mg ativan and we discussed how she can taper self off. advised her to take it only if she needs to. she can start by using one half mg as needed not to exceed three daily and cut
back from there. she can talk w prescriber at [facility] for further addictions counselor. she can call our crisis center if questions or concerns. AA might also provide her with some support.
--- NOTE | 2024-04-15 14:22 | W.PN.HOSP.TC ---
Addendum entered and electronically signed by Krystal Tomas MD 04/16/24 14:29:
Alcohol abuse with withdrawal
Addendum entered and electronically signed by Krystal Tomas MD 04/15/24 14:41:
Pt doesn't want to take Clonidine. She stooped it over a week ago
Original Note:
Today's Communication/Plan
-
Discharge
Assessment / Plan
Assessment / Plan
34-year-old female with anxiety and alcohol use came to the ER with 4 days of alcohol binging. She was discharged home. Patient also feels that neighbors are spying on her
CVS: S1-S2 normal
Chest: CTA B/L
Abdomen: Soft, NT / Bowel sounds present
Extremities: No edema, normal pulses
HEALTH AND SAFETY TRAINER: Non focal exam
# Unspecified psychosis
Auditory and visual hallucinations
Psychiatric following and started on as needed antipsychotics
Currently on risperidone 1 mg twice daily
Patient has been accepted at [facility] IOP appointment on at 12:30 they have been in touch with patient.
# Hepatic steatosis
Likely secondary to alcohol use
Ultrasound with diffuse steatosis
Hepatitis panel negative
LFTs trending down
Needs follow-up with GI as outpatient
# Hyponatremia-euvolemic
Possible psychogenic polydipsia
Presented with sodium of 126
Started on fluid restriction
# Leukocytosis-no obvious source of infection
Resolved without antibiotics
# Marijuana use
# DVT prophylaxis-subcutaneous Lovenox
# Full code
Patient stated that her symptoms completely resolved. I advised her to stay away from alcohol completely. If she has any more of this symptoms she needs an MRI of the brain with and without contrast. Patient is aware about this.
Spoke to patient's mother who is the spokesperson. Mom will be discussed about take medicines as specified, follow-up with GI for hepatic steatosis, here to pick the patient up today.
Getting an MRI of the brain if this happens again
D/W Psyche
D/W Case management and RN
Anticipated Discharge: Today
Subjective/Interval History
-
Date of Service: April 15, 2024
Objective Data
-
Labs:
Laboratory Results
04/15/24
07:27
Sodium 140
Potassium 5.0
Chloride 103
Carbon Dioxide 27
BUN 10
Creatinine 0.7
Glucose 110 H
Calcium 9.5
Total Bilirubin < 0.1 L
AST 91 H
ALT 224 H
Alkaline Phosphatase 67
Vital Signs:
Vital Signs
Temp Pulse Resp BP Pulse Ox
97.9 F 81 18 128/68 98
04/15/24 07:00 04/15/24 07:00 04/15/24 07:00 04/15/24 07:00 04/15/24 07:25
I&O
04/14/24 04/15/24 04/16/24
06:59 06:59 06:59
Intake Total 480 / 480
Balance 480 / 480
--- NOTE | 2024-04-15 14:40 | W.DS.TRANS ---
Addendum entered and electronically signed by Krystal Tomas MD 04/15/24 17:45:
Dictation- [id number]
Original Note:
DC Summary - Charge Lpn
-
Discharge Instructions:
Discharge Diagnosis/Procedures Unspecified psychosis
Alcohol use disorder
Elevated liver tests-fatty liver
Diet As tolerated
Activity As tolerated
Driving Restrictions do not drive when you take ativan
Instructions:
Stand-Alone Forms:
Changes to Home Medications: Yes
Discharge Medications:
DC Medications w/original date entered in [employer]
cyanocobalamin (vitamin B-12) 500 mcg tablet 500 mcg PO DAILY Supplement 04/09/24
magnesium oxide 500 mg PO DAILY Supplement 04/09/24
folic acid 1 mg tablet 1 mg PO DAILY Supplement #30 tabs 04/15/24
lorazepam 1 mg tablet 0.5 mg (1/2 x 1 mg) PO BIDPRN PRN anxiety #10 tabs 04/15/24
melatonin 5 mg tablet 5 mg PO HS Sleep #0 tabs 04/15/24
risperidone 1 mg tablet 1 mg PO BID Mental Health/Anxiety #30 tabs 04/15/24
thiamine HCl (vitamin B1) 100 mg tablet 100 mg PO BID Supplement #60 tabs 04/15/24
Home Medication Changes
new
folic acid 1 mg tablet 1 mg PO DAILY Supplement #30 tabs 04/15/24
lorazepam 1 mg tablet 0.5 mg (1/2 x 1 mg) PO BIDPRN PRN anxiety #10 tabs 04/15/24
melatonin 5 mg tablet 5 mg PO HS Sleep #0 tabs 04/15/24
risperidone 1 mg tablet 1 mg PO BID Mental Health/Anxiety #30 tabs 04/15/24
thiamine HCl (vitamin B1) 100 mg tablet 100 mg PO BID Supplement #60 tabs 04/15/24
Lexapro stopped
Pending Results: No
--- NOTE | 2024-04-15 14:46 | W.[place]-PDMP ---
[place]PD[place]
-
Checked the [place]- Prescription Drug Monitoring Program website, no red flags identified; safe to proceed with prescription.
[2024-04-15 15:04] VITALS: BP 134/91
--- NOTE | 2024-04-16 14:18 | PN.CDI ---
CDI
- -
CDI:
Physician Documentation Request
Admit Date: 04/11/24 16:53
Dear Doctor Thom,
Patient admitted for psychosis.
H&P: 'Patient was recently seen in the emergency department about 4 days ago following alcohol binging...She reports that her last drink was over 48 hours ago and she only had a small shot at that time. '
04/10 Hospitalist PN: 'Hepatic steatosis -Likely secondary to alcohol steatohepatitis from prolonged alcohol abuse history'
04/10/24
20:26 04/10/24
22:30 04/12/24
18:00
MSAS SCORE 5 5 4
Medications
Lorazepam (Lorazepam 1 Mg Tablet) 1 mg PO Q2HPRN PRN
PRN Reason: MSAS 5-7
Stop: 05/07/24 04:45
Last Admin: 04/10/24 22:46 Dose: 1 mg
If possible, please provide further specificity as outlined below:
Alcohol abuse with withdrawal
Alcohol abuse without withdrawal
Other
Use of terms such as suspected, likely, concern for, or probable (associated with a specific diagnosis that is being evaluated, monitored, or treated as if it exists) are acceptable and can be coded in the inpatient setting, when documented at the
time of discharge.
Thank you,
Sharon Mejia RN, BSN
CDI Specialist
Available via [place] text
Please use your independent medical judgment in providing your response.
== END 2024-04-15 16:02 | disposition home or self-care (01) | DRG 885 ==
LOC: 4 WEST ACU 16:53
PROVIDERS: Internal Medicine; Student in an Organized Health Care Education/Training Program; ADMITTING PHYSICIAN Internal Medicine; ATTENDING PHYSICIAN Hospitalist; CONSULT PHYSICIAN Psychiatry & Neurology Psychiatry; CONSULT PHYSICIAN Specialist; EMERGENCY PHYSICIAN Emergency Medicine
DX: F29 Unspecified psychosis not due to a substance or known physiological condition (principal); E22.2 Syndrome of inappropriate secretion of antidiuretic hormone; F10.130 Alcohol abuse with withdrawal, uncomplicated; R74.01 Elevation of levels of liver transaminase levels; D72.829 Elevated white blood cell count, unspecified; K76.0 Fatty (change of) liver, not elsewhere classified; F41.0 Panic disorder [episodic paroxysmal anxiety]; F43.10 Post-traumatic stress disorder, unspecified; F32.A Depression, unspecified; F17.210 Nicotine dependence, cigarettes, uncomplicated; R56.9 Unspecified convulsions; F12.90 Cannabis use, unspecified, uncomplicated; Z79.899 Other long term (current) drug therapy; Z81.8 Family history of other mental and behavioral disorders
CPT/HCPCS: 76700; 80048; 80053; 80061; 80143; 80179; 80306; 80307; 82077; 82248; 82436; 82746; 83690; 83930; 83935; 84300; 84443; 84550; 85025; 85027; 85610; 86705; 86706; 86709; 86803; 87340; 93005; 96360; 99285; 99406